=== PATIENT | female | born 1995 | race Caucasian/White ===

== ENCOUNTER 2020-11-13 12:57 | Inpatient (IN) ==
[2020-11-13] MEDS ORDERED: SODIUM CHLORIDE 0.9% 1000ML 1,000 ML IV ONE ×2 (13:12→17:22)
[2020-11-13] MEDS ORDERED: PANTOprazole 40 MG in SYRINGE 0 ML IV ONE (13:24)
--- NOTE | 2020-11-13 13:24 | Emergency Department Note ---
Impression & Plan Syncope, Acute hypotension, Acute GI bleeding, Abnormal abdominal CT scan ED Provider Note NAME: JOSE GUPTA AGE: 25 SEX: F : 1995 ARRIVES VIA: Walk-In INFORMANT: Patient, ED PROVIDER(S): Sean Garcia DO CHIEF COMPLAINT: Syncope HPI: The patient is a 25-year-old female who presented to the emergency department for an evaluation of having syncope. The patient describes dizziness upon standing. The patient states that she has been having the symptoms for the last few weeks. She initially started having shortness of breath and dizziness. She was not seen by primary care physician prior to coming to the emergency d epartment today. She did call advice line but was told to stay at home. She presents emergency department today after having syncope upon standing. She states she becomes very dizzy and lightheaded whenever she stands. The patient started to notice nausea and vomiting. She states that she has had some rectal bleeding but thought she might have hemorrhoids. She denies having any hematemesis. She denies having any fevers. The patient denies having any chest pain. She does complain of dyspnea on exertion. She denies have any lower extremity swelling or recent traveling. ROS: See above HPI for pertinent positives & negatives. A total of 10 systems reviewed and were otherwise negative. PAST MEDICAL HISTORY: See Below PAST SURGICAL HISTORY: See Below FAMILY HISTORY: See Below SOCIAL HISTORY: See Below HOME MEDICATIONS: See Below ALLERGIES: See Below VITALS: See Below PHYSICAL EXAMINATION: GENERAL: The patient is awake and alert. The patient is very anxious appearing. EYES: The conjunctivae are pale. The pupils are round and reactive. EARS, NOSE, MOUTH AND THROAT: The nose is without any evidence of any deformity. NECK: The neck is nontender and supple. RESPIRATORY: Normal respiratory effort is noted there is no evidence of wheezing rhonchi or rales CARDIOVASCULAR: Regular rate and rhythm noted there no murmurs rubs or gallops normal S1 normal S2. GASTROINTESTINAL: The abdomen is soft. Abdomen is nontender. Rectal exam revealed brown stool which was heme positive. MUSCULOSKELETAL/EXTREMITIES: There is no evidence of gross deformity full range of motion is noted in the hips and shoulders. SKIN: There is no obvious evidence of any rash. There are no petechiae, pallor or cyanosis noted. NEUROLOGIC: Patient is awake alert and oriented x3 strength is symmetric patellar reflexes are 2+ bilaterally MEDICAL DECISION MAKING: The patient is a 25-year-old female who presented to the emergency department because of dizziness and syncope. The patient's had ongoing symptoms for the last week or so. She states that she was not seen by her primary care physician. She does not have any significant past medical history. She only presented today because she passed out and was very concerned about this episode. She did not have a physical exam consistent with acute surgical abdomen. The patient was treated with IV fluids in the emergency department. Her hypotension significantly improved after IV hydration. I discussed the patient's laboratory and radiographic studies with her. She was found to have possible signs of appendicitis on CT the abdomen and pelvis although on physical exam I doubt this. I discussed her case with the on-call general surgeon. She was also found to have signs of heme positive stool. It is possible she has a GI bleed but I doubt this is causing her hypotension as her hemoglobin is stable. The patient was feeling much better on reevaluation but I am very concerned about the patient's overall condition. For this reason I discussed her case also with the on-call [facility] hospitalist. They have agreed to evaluate the patient in the emergency department for further management and disposition. Triage Nursing notes reviewed. Prior medical records reviewed Vital Signs: reviewed and remarkable for hypotension Differential diagnosis: Infection, dehydration, metabolic abnormality, hypo/hyperglycemia, electrolyte disturbance, anemia, hypoxia, cardiac sources, intracerebral event, toxicologic, neurologic, as well as other pathologies. ER treatment provided: See below Diagnostics interpreted by me: ECG: EKG was obtained in the emergency department. My interpretation is normal sinus rhythm at 99 bpm. There was no ectopy. There is no acute ST segment abnormalities noted. No previous tracing was available. Cardiac Monitoring: An order was placed for continuous cardiac monitoring. The monitor shows a rate of 105 bpm with sinus tachycardia rhythm. Laboratory studies: As stated above and show below. Imaging studies: See below Consultation(s): 1734: I discussed this case with Dr. Small who is on-call for general surgery. He will evaluate the patient in the emergency department 1740: I discussed this case with Dr Kennedy. He he is agreed to evaluate the patient in the emergency department for further inpatient management. Past Med/Surg History Social History Smoking Status: Never smoker Preferred Language: Arabic Feels Safe at Home: Yes Allergies Allergies Allergy/AdvReac Type Severity Reaction Status Date / Time No Known Allergies Allergy Verified 11/13/20 14:04 Home Meds Home Medications Medication Instructions Recorded Confirmed multivitamin [Multiple Vitamin] 1 tab PO DAILY 11/13/20 11/13/20 Results & Data (ED) Vital Signs Vital Signs - 24 hr 11/13/20 13:03 11/13/20 13:24 11/13/20 13:26 Temperature 36.8 C Temperature Source Temporal Artery Scan Pulse Rate 86 107 H Pulse Rate [Left Finger] Respiratory Rate 20 16 Respiratory Effort / Characteristics Non-Labored Non-Labored Respiratory Depth Normal Respiratory Pattern Regular Blood Pressure 71/58 L 105/70 Blood Pressure [Left Arm] Blood Pressure Mean 62 82 Blood Pressure Mean [Left Arm] Blood Pressure Position Sitting Pulse Oximetry 94 96 96 Oxygen Delivery Method Room Air Room Air Sepsis Recent Fever Within 48 Hours No Sepsis New/Unexplained Change in Mental Status No Sepsis Action Taken by Nursing No Action Required 11/13/20 13:44 11/13/20 14:58 11/13/20 15:03 Temperature Temperature Source Pulse Rate 110 H Pulse Rate [Left Finger] 108 H 98 H Respiratory Rate 15 20 18 Respiratory Effort / Characteristics Respiratory Depth Respiratory Pattern Blood Pressure 106/65 Blood Pressure [Left Arm] 89/58 L 105/63 Blood Pressure Mean 84 Blood Pressure Mean [Left Arm] 68 77 Blood Pressure Position Pulse Oximetry 98 100 100 Oxygen Delivery Method Room Air Room Air Sepsis Recent Fever Within 48 Hours Sepsis New/Unexplained Change in Mental Status Sepsis Action Taken by Nursing 11/13/20 15:04 11/13/20 16:32 11/13/20 17:35 Temperature Temperature Source Pulse Rate Pulse Rate [Left Finger] 108 H 104 H Respiratory Rate 20 20 Respiratory Effort / Characteristics Respiratory Depth Respiratory Pattern Blood Pressure Blood Pressure [Left Arm] 104/60 102/64 Blood Pressure Mean Blood Pressure Mean [Left Arm] 74 76 Blood Pressure Position Pulse Oximetry 100 100 95 Oxygen Delivery Method Room Air Room Air Sepsis Recent Fever Within 48 Hours Sepsis New/Unexplained Change in Mental Status Sepsis Action Taken by Jail Medications Current Medication List: was personally reviewed by me Laboratory Data Attestation: I reviewed the patient's lab results. Result diagrams: 11/13/20 13:01 11/13/20 13:01 Lab Results 11/13/20 11/13/20 11/13/20 Range/Units 13:01 13:01 13:01 WBC (4.8-10.8) K/uL RBC (4.2-5.4) M/uL Hgb (12.0-16.0) g/dL POC Hgb (12.0-16.0) g/dl Hct (37-47) % POC Hct (37-47) % MCV (80-100) fL MCH (25-34) pg MCHC (32-36) g/dL RDW Std Deviation (36.4-46.3) fL RDW Coeff of Titi (11.5-14.5) % Plt Count (130-400) K/uL MPV (7.4-10.4) fL Neutrophils % (Manual) % Lymphocytes % (Manual) % Reactive Lymphs % (Man) % Monocytes % (Manual) % Eosinophils % (Manual) % Basophils % (Manual) % Neutrophils # (Manual) (1.4-6.5) K/uL Total Absolute Neuts (1.4-6.5) K/uL Lymphocytes # (Manual) (1.2-3.4) K/uL Reactive Lymphs # K/uL Total Abs Lymphocytes (1.2-3.4) K/uL Monocytes # (Manual) (0.11-0.59) K/uL Eosinophils # (Manual) (0-0.5) K/uL Basophils # (Manual) (0-0.2) K/uL PT 11.2 (9.0-12.0) Seconds INR 1.1 (0.9-1.1) APTT 32.5 H (21.0-31.0) Seconds PTT Ratio 1.2 D-Dimer 1800 H* (0-500) ug/L FEU POC Sodium (135-144) mmol/L Sodium 132 L (136-145) mmol/L POC Potassium (3.3-5.0) mmol/L Potassium 3.8 (3.5-5.1) mmol/L POC Chloride (101-112) mmol/L Chloride 99 (98-107) mmol/L Carbon Dioxide 25 (21-32) mmol/L POC Total CO2 (24-31) mmol/L Anion Gap 8.0 (3-11) POC Anion Gap (16-25) mmol/L POC BUN (7-18) mg/dl BUN 21 H (7-18) mg/dl Creatinine 1.09 (0.6-1.2) mg/dl POC Creatinine (0.6-1.3) mg/dl Est Cr Clr Drug Dosing Not Reportable Est GFR ( Amer) 82.3 Est GFR (Non-Af Amer) 71.0 BUN/Creatinine Ratio 19.4 (10-20) Glucose 106 H (70-99) mg/dl POC Glucose (other) (70-99) mg/dl Lactate (0.4-2.0) mmol/L Calcium 10.6 H (8.5-10.1) mg/dl POC Ioniz Calcium Kirsten (1.12-1.32) mmol/l Magnesium 1.8 (1.8-2.4) mg/dl Total Bilirubin 0.8 (0.2-1) mg/dl AST 59 H (15-37) U/L ALT 42 (12-78) U/L Alkaline Phosphatase 54 (45-117) U/L Troponin I < 0.015 (0-0.045) ng/ml Total Protein 8.2 (6.4-8.2) gm/dl Albumin 4.0 (3.4-5.0) gm/dl Globulin 4.2 H (2.5-4.0) gm/dl Albumin/Globulin Ratio 0.9 (0.9-2) Procalcitonin 0.06 (0-0.5) ng/ml TSH (0.300-4.500) uIu/ml HCG, Qual Negative (Negative) Urine Color Urine Appearance (Clear) Urine pH (4.5-7.5) Ur Specific Opp (1.000-1.030) Urine Protein (Negative) Urine Glucose (UA) (Negative) Urine Ketones (Negative) Urine Blood (Negative) Urine Nitrite (Negative) Urine Bilirubin (Negative) Urine Urobilinogen (Negative) Ur Leukocyte Esterase (Negative) Anaplasma Smear Lyme Disease IgG Ab (Negative) Lyme Disease IgM Ab (Negative) Blood Type Antibody Screen 11/13/20 11/13/20 11/13/20 Range/Units 13:01 13:01 13:27 WBC 10.14 (4.8-10.8) K/uL RBC 5.11 (4.2-5.4) M/uL Hgb 14.8 (12.0-16.0) g/dL POC Hgb 15.3 (12.0-16.0) g/dl Hct 43.7 (37-47) % POC Hct 45 (37-47) % MCV 85.5 (80-100) fL MCH 29.0 (25-34) pg MCHC 33.9 (32-36) g/dL RDW Std Deviation 39.7 (36.4-46.3) fL RDW Coeff of Titi 12.6 (11.5-14.5) % Plt Count 294 (130-400) K/uL MPV 10.6 H (7.4-10.4) fL Neutrophils % (Manual) 29.6 % Lymphocytes % (Manual) 36.5 % Reactive Lymphs % (Man) 17.4 % Monocytes % (Manual) 5.2 % Eosinophils % (Manual) 9.6 % Basophils % (Manual) 1.7 % Neutrophils # (Manual) 3.00 (1.4-6.5) K/uL Total Absolute Neuts 3.00 (1.4-6.5) K/uL Lymphocytes # (Manual) 3.70 H (1.2-3.4) K/uL Reactive Lymphs # 1.76 K/uL Total Abs Lymphocytes 5.47 H (1.2-3.4) K/uL Monocytes # (Manual) 0.53 (0.11-0.59) K/uL Eosinophils # (Manual) 0.97 H (0-0.5) K/uL Basophils # (Manual) 0.17 (0-0.2) K/uL PT (9.0-12.0) Seconds INR (0.9-1.1) APTT (21.0-31.0) Seconds PTT Ratio D-Dimer (0-500) ug/L FEU POC Sodium 132 L (135-144) mmol/L Sodium (136-145) mmol/L POC Potassium 3.9 (3.3-5.0) mmol/L Potassium (3.5-5.1) mmol/L POC Chloride 97 L (101-112) mmol/L Chloride (98-107) mmol/L Carbon Dioxide (21-32) mmol/L POC Total CO2 24 (24-31) mmol/L Anion Gap (3-11) POC Anion Gap 16.0 (16-25) mmol/L POC BUN 22 H (7-18) mg/dl BUN (7-18) mg/dl Creatinine (0.6-1.2) mg/dl POC Creatinine 1.0 (0.6-1.3) mg/dl Est Cr Clr Drug Dosing Est GFR ( Amer) Est GFR (Non-Af Amer) BUN/Creatinine Ratio (10-20) Glucose (70-99) mg/dl POC Glucose (other) 107 H (70-99) mg/dl Lactate (0.4-2.0) mmol/L Calcium (8.5-10.1) mg/dl POC Ioniz Calcium Kirsten 1.39 H (1.12-1.32) mmol/l Magnesium (1.8-2.4) mg/dl Total Bilirubin (0.2-1) mg/dl AST (15-37) U/L ALT (12-78) U/L Alkaline Phosphatase (45-117) U/L Troponin I (0-0.045) ng/ml Total Protein (6.4-8.2) gm/dl Albumin (3.4-5.0) gm/dl Globulin (2.5-4.0) gm/dl Albumin/Globulin Ratio (0.9-2) Procalcitonin (0-0.5) ng/ml TSH 1.070 (0.300-4.500) uIu/ml HCG, Qual (Negative) Urine Color Urine Appearance (Clear) Urine pH (4.5-7.5) Ur Specific Opp (1.000-1.030) Urine Protein (Negative) Urine Glucose (UA) (Negative) Urine Ketones (Negative) Urine Blood (Negative) Urine Nitrite (Negative) Urine Bilirubin (Negative) Urine Urobilinogen (Negative) Ur Leukocyte Esterase (Negative) Anaplasma Smear Lyme Disease IgG Ab (Negative) Lyme Disease IgM Ab (Negative) Blood Type Antibody Screen 11/13/20 11/13/20 11/13/20 Range/Units 13:40 13:57 13:57 WBC (4.8-10.8) K/uL RBC (4.2-5.4) M/uL Hgb (12.0-16.0) g/dL POC Hgb (12.0-16.0) g/dl Hct (37-47) % POC Hct (37-47) % MCV (80-100) fL MCH (25-34) pg MCHC (32-36) g/dL RDW Std Deviation (36.4-46.3) fL RDW Coeff of Titi (11.5-14.5) % Plt Count (130-400) K/uL MPV (7.4-10.4) fL Neutrophils % (Manual) % Lymphocytes % (Manual) % Reactive Lymphs % (Man) % Monocytes % (Manual) % Eosinophils % (Manual) % Basophils % (Manual) % Neutrophils # (Manual) (1.4-6.5) K/uL Total Absolute Neuts (1.4-6.5) K/uL Lymphocytes # (Manual) (1.2-3.4) K/uL Reactive Lymphs # K/uL Total Abs Lymphocytes (1.2-3.4) K/uL Monocytes # (Manual) (0.11-0.59) K/uL Eosinophils # (Manual) (0-0.5) K/uL Basophils # (Manual) (0-0.2) K/uL PT (9.0-12.0) Seconds INR (0.9-1.1) APTT (21.0-31.0) Seconds PTT Ratio D-Dimer (0-500) ug/L FEU POC Sodium (135-144) mmol/L Sodium (136-145) mmol/L POC Potassium (3.3-5.0) mmol/L Potassium (3.5-5.1) mmol/L POC Chloride (101-112) mmol/L Chloride (98-107) mmol/L Carbon Dioxide (21-32) mmol/L POC Total CO2 (24-31) mmol/L Anion Gap (3-11) POC Anion Gap (16-25) mmol/L POC BUN (7-18) mg/dl BUN (7-18) mg/dl Creatinine (0.6-1.2) mg/dl POC Creatinine (0.6-1.3) mg/dl Est Cr Clr Drug Dosing Est GFR ( Amer) Est GFR (Non-Af Amer) BUN/Creatinine Ratio (10-20) Glucose (70-99) mg/dl POC Glucose (other) (70-99) mg/dl Lactate 2.0 (0.4-2.0) mmol/L Calcium (8.5-10.1) mg/dl POC Ioniz Calcium Kirsten (1.12-1.32) mmol/l Magnesium (1.8-2.4) mg/dl Total Bilirubin (0.2-1) mg/dl AST (15-37) U/L ALT (12-78) U/L Alkaline Phosphatase (45-117) U/L Troponin I (0-0.045) ng/ml Total Protein (6.4-8.2) gm/dl Albumin (3.4-5.0) gm/dl Globulin (2.5-4.0) gm/dl Albumin/Globulin Ratio (0.9-2) Procalcitonin (0-0.5) ng/ml TSH (0.300-4.500) uIu/ml HCG, Qual (Negative) Urine Color Urine Appearance (Clear) Urine pH (4.5-7.5) Ur Specific Opp (1.000-1.030) Urine Protein (Negative) Urine Glucose (UA) (Negative) Urine Ketones (Negative) Urine Blood (Negative) Urine Nitrite (Negative) Urine Bilirubin (Negative) Urine Urobilinogen (Negative) Ur Leukocyte Esterase (Negative) Anaplasma Smear See Comment Lyme Disease IgG Ab (Negative) Lyme Disease IgM Ab (Negative) Blood Type O Positive Antibody Screen NEGATIVE 11/13/20 11/13/20 Range/Units 13:57 16:25 WBC (4.8-10.8) K/uL RBC (4.2-5.4) M/uL Hgb (12.0-16.0) g/dL POC Hgb (12.0-16.0) g/dl Hct (37-47) % POC Hct (37-47) % MCV (80-100) fL MCH (25-34) pg MCHC (32-36) g/dL RDW Std Deviation (36.4-46.3) fL RDW Coeff of Titi (11.5-14.5) % Plt Count (130-400) K/uL MPV (7.4-10.4) fL Neutrophils % (Manual) % Lymphocytes % (Manual) % Reactive Lymphs % (Man) % Monocytes % (Manual) % Eosinophils % (Manual) % Basophils % (Manual) % Neutrophils # (Manual) (1.4-6.5) K/uL Total Absolute Neuts (1.4-6.5) K/uL Lymphocytes # (Manual) (1.2-3.4) K/uL Reactive Lymphs # K/uL Total Abs Lymphocytes (1.2-3.4) K/uL Monocytes # (Manual) (0.11-0.59) K/uL Eosinophils # (Manual) (0-0.5) K/uL Basophils # (Manual) (0-0.2) K/uL PT (9.0-12.0) Seconds INR (0.9-1.1) APTT (21.0-31.0) Seconds PTT Ratio D-Dimer (0-500) ug/L FEU POC Sodium (135-144) mmol/L Sodium (136-145) mmol/L POC Potassium (3.3-5.0) mmol/L Potassium (3.5-5.1) mmol/L POC Chloride (101-112) mmol/L Chloride (98-107) mmol/L Carbon Dioxide (21-32) mmol/L POC Total CO2 (24-31) mmol/L Anion Gap (3-11) POC Anion Gap (16-25) mmol/L POC BUN (7-18) mg/dl BUN (7-18) mg/dl Creatinine (0.6-1.2) mg/dl POC Creatinine (0.6-1.3) mg/dl Est Cr Clr Drug Dosing Est GFR ( Amer) Est GFR (Non-Af Amer) BUN/Creatinine Ratio (10-20) Glucose (70-99) mg/dl POC Glucose (other) (70-99) mg/dl Lactate (0.4-2.0) mmol/L Calcium (8.5-10.1) mg/dl POC Ioniz Calcium Kirsten (1.12-1.32) mmol/l Magnesium (1.8-2.4) mg/dl Total Bilirubin (0.2-1) mg/dl AST (15-37) U/L ALT (12-78) U/L Alkaline Phosphatase (45-117) U/L Troponin I (0-0.045) ng/ml Total Protein (6.4-8.2) gm/dl Albumin (3.4-5.0) gm/dl Globulin (2.5-4.0) gm/dl Albumin/Globulin Ratio (0.9-2) Procalcitonin (0-0.5) ng/ml TSH (0.300-4.500) uIu/ml HCG, Qual (Negative) Urine Color Yellow Urine Appearance Clear (Clear) Urine pH 5.0 (4.5-7.5) Ur Specific Opp 1.038 H (1.000-1.030) Urine Protein Negative (Negative) Urine Glucose (UA) Negative (Negative) Urine Ketones Trace H (Negative) Urine Blood Negative (Negative) Urine Nitrite Negative (Negative) Urine Bilirubin Negative (Negative) Urine Urobilinogen Negative (Negative) Ur Leukocyte Esterase Negative (Negative) Anaplasma Smear Lyme Disease IgG Ab Negative (Negative) Lyme Disease IgM Ab Negative (Negative) Blood Type Antibody Screen Administered Medications Discontinued Medications Sodium Chloride (Nss 1000ml) 1,000 mls @ 999 mls/hr IV .Q1H1M ONE Stop: 11/13/20 14:12 Last Infusion: 11/13/20 15:05 Dose: 0 mls/hr Documented by: [id number] Admin: 11/13/20 13:25 Dose: 999 mls/hr Documented by: [id number] Pantoprazole Sodium 40 mg/ (Syringe) 10 mls @ 5 mls/min IV NOW ONE Stop: 11/13/20 13:25 Last Admin: 11/13/20 13:52 Dose: 5 mls/min Documented by: [id number] Ioversol (Optiray 320 125ml) 120 ml IV ONCE ONE Stop: 11/13/20 16:15 Last Admin: 11/13/20 16:16 Dose: 120 ml Documented by: [id number] Imaging Data Radiologist's Impression: Patient: JOSE GUPTA Admit Date: 11/13/20 MR#: [id number] Address1: [address] [place] [address] Acct ID:[id number] Address2: Date: 1995 [facility] Zip: [place] [address] Age: 25 Location: ED Sex: F Room/Bed: Att Phy: Diagnosis: LIGHTHEADED,NAUSEA,SICK FOR FEW DAYS Malou Phy: PCP,NO Service Date: 11/13/20 Fam Phy: Interpreting Phy: Zan Huerta MD Admit Phy: Ordering Phy: Sean Garcia DO cc: ~ CT ANGIOGRAM OF THE CHEST CLINICAL HISTORY: Syncope, shortness of breath. Possible pulmonary embolism. SEPSIS COMPARISON STUDY: Chest x-ray dated 11/13/2020 TECHNIQUE: Following the IV administration of 120 mL of Optiray-320, CT angiogram of the thorax was performed from the thoracic inlet to the lung bases utilizing the pulmonary embolus protocol. Images are reviewed in the axial, sagittal, and coronal planes. IV contrast was administered without complication. MIP imaging was performed. A dose lowering technique was utilized adhering to the principles of ALARA. CT DOSE: 644.15 mGycm FINDINGS: No pathologically enlarged axillary mediastinal or hilar lymph nodes were visualized. There was no evidence of thoracic aortic dilatation. There were no pulmonary artery filling defects to indicate acute pulmonary embolism. No pleural effusions are visualized. There was no evidence of focal pulmonary consolidation. IMPRESSION: 1. No acute intrathoracic findings 2. No evidence of acute pulmonary embolism 3. No evidence of focal pulmonary consolidation 4. No evidence of pathologic adenopathy ACT 112: Negative or not required by law. Electronically signed by: Zan Huerta M.D. 11/13/2020 4:26 PM Dictated: 11/13/201623 Transcribed: 11/13/201623 Patient: JOSE GUPTA Admit Date: 11/13/20 MR#: [id number] Address1: [address] [place] [address] Acct ID:[id number] Address2: Date: 1995 [facility] Zip: [place] [address] Age: 25 Location: ED Sex: F Room/Bed: Att Phy: Diagnosis: LIGHTHEADED,NAUSEA,SICK FOR FEW DAYS Malou Phy: PCP,NO Service Date: 11/13/20 [facility] Phy: Interpreting Phy: Zan Huerta MD Admit Phy: Ordering Phy: Sean Garcia DO cc: ~ CT abd pelvis IV con only CLINICAL HISTORY: Syncope VOMITING COMPARISON STUDY: None. TECHNIQUE: The patient was scanned in a dynamic helical fashion during intravenous administration of 120 cc of Optiray 320 A dose lowering technique was utilized adhering to the principles of ALARA. CT DOSE: FINDINGS: Lower chest: The heart is normal in size and configuration, without pericardial effusion. The lung bases and pleural spaces are clear. Liver: The contrast-enhanced liver is normal in size, contour, and attenuation. There is no intrahepatic biliary ductal dilatation. The hepatic veins and portal veins are patent. Gallbladder: Unremarkable. Spleen: Normal in size and attenuation. Pancreas: Unremarkable. Adrenal glands: Unremarkable. Kidneys: There is symmetric renal cortical enhancement. The kidneys are normal in size without hydronephrosis. Bowel: There are no transition zones to indicate bowel obstruction. There is no evidence of acute diverticulitis. There is a long appendix. There is an appendicolith within the midportion of the appendix. The appendix distal to the appendicolith is borderline dilated measuring 7 mm. There is no periappendiceal stranding. Peritoneum: There is no intraperitoneal free air or abdominal ascites. Vasculature: The abdominal aorta is normal in course and caliber. Adenopathy: None. Pelvic viscera: There are prominent bilateral ovarian follicles measuring up to 43 mm on the right, and 26 mm on the left. Skeletal structures: No destructive osseous lesions are seen. IMPRESSION: 1. No evidence of bowel obstruction. No evidence of free air 2. No evidence of acute diverticulitis 3. 5 mm appendicolith in the middle of a long appendix. The appendix at this level and distal to this level is borderline thickened measuring 7 mm. There is however no periappendiceal stranding. This may therefore be chronic. Clinical correlation and follow-up is advocated. 4. Multiple prominent bilateral ovarian follicles measuring up to 43 mm in the right and 26 mm on the left. Ovarian hyperstimulation cannot be excluded. Correlation with any history of exogenous hormonal stimulation is recommended. ACT 112: Negative or not required by law. Electronically signed by: Zan Huerta M.D. 11/13/2020 4:36 PM Dictated: 11/13/201626 Transcribed: 11/13/201626 Patient: JOSE GUPTA Admit Date: 11/13/20 MR#: [id number] Address1: [address] [facility] Acct ID:[id number] Address2: Date: 1995 [facility] Zip: [place] [address] Age: 25 Location: ED Sex: F Room/Bed: Att Phy: Diagnosis: LIGHTHEADED,NAUSEA,SICK FOR FEW DAYS Malou Phy: PCP,NO Service Date: 11/13/20 [facility] Phy: Interpreting Phy: Zan Huerta MD Admit Phy: Ordering Phy: Sean Garcia, cc: ~ XR chest 1V portable CLINICAL HISTORY: SEPSIS COMPARISON STUDY: No previous studies for comparison. FINDINGS: The cardiac and mediastinal contours are normal. There is no evidence of focal pulmonary consolidation. There is no evidence of failure. No pleural effusions are visualized.[ IMPRESSION: No active disease in the chest. ACT 112: Negative or not required by law. Electronically signed by: Zan Huerta M.D. 11/13/2020 1:32 PM Dictated: 11/13/20 1331 Transcribed: 11/13/20 1331 Blood Pressure Blood Pressure Findings: Low blood pressure Discharge Plan Visit Data Chief Complaint: Illness Stated Complaint: LIGHTHEADED,NAUSEA,SICK FOR FEW DAYS ED Provider: Sean Garcia Discharge Problem: Syncope, Acute hypotension, Acute GI bleeding, Abnormal abdominal CT scan Patient Disposition: Being Evaluated by Hospitalist Condition: Good Forms Stand Alone Forms: [email or web address] Prescriptions Prescriptions: No Action multivitamin [Multiple Vitamin] Tablet 1 tab PO DAILY RF: 0 Referrals Referrals: PCP,NO [Primary Care Provider] - Discharge Problem: Syncope Qualifiers: Syncope type: unspecified Qualified Code(s): R55 - Syncope and collapse
--- NOTE | 2020-11-13 13:33 | XRay Report ---
XR chest 1V portable CLINICAL HISTORY: SEPSIS COMPARISON STUDY: No previous studies for comparison. FINDINGS: The cardiac and mediastinal contours are normal. There is no evidence of focal pulmonary co nsolidation. There is no evidence of failure. No pleural effusions are visualized.[ IMPRESSION: No active disease in the chest. ACT 112: Negative or not required by law. Electronically signed by: Zan Huerta M.D. 11/13/2020 1:32 PM
[2020-11-13 13:39] LABS: iSTAT Hemoglobin 15.3 g/dl (12.0-16.0); iSTAT Ionized Calcium 1.39 mmol/l (1.12-1.32); iSTAT Potassium 3.9 mmol/L (3.3-5.0)
[2020-11-13 13:41] LABS: Hematocrit (blood only) 43.7 % (37-47); Hemoglobin 14.8 g/dL (12.0-16.0); Mean Corpuscular Hgb Conc 33.9 g/dL (32-36); Mean Corpuscular Volume 85.5 fL (80-100); Mean Platelet Volume 10.6 fL (7.4-10.4); Platelet Count 294 K/uL (130-400); RDW Coefficient of Variation 12.6 % (11.5-14.5); RDW Standard Deviation 39.7 fL (36.4-46.3); Red Blood Count 5.11 M/uL (4.2-5.4); White Blood Count 10.14 K/uL (4.8-10.8)
[2020-11-13 13:55] LABS: INR 1.1 (0.9-1.1); Partial Thromboplastin Ratio 1.2; Partial Thromboplastin Time 32.5 Seconds (21.0-31.0); Prothrombin Time 11.2 Seconds (9.0-12.0)
[2020-11-13 14:00] LABS: Alanine Aminotransferase 42 U/L (12-78); Aspartate Aminotransferase 59 U/L (15-37); BUN Creatinine Ratio 19.4 (10-20); Blood Urea Nitrogen 21 mg/dl (7-18); Calcium 10.6 mg/dl (8.5-10.1); Carbon Dioxide 25 mmol/L (21-32); Chloride 99 mmol/L (98-107); Est GFR (African American) 82.3; Glucose 106 mg/dl (70-99); Magnesium 1.8 mg/dl (1.8-2.4); Potassium 3.8 mmol/L (3.5-5.1); Sodium 132 mmol/L (136-145)
[2020-11-13 14:04] LABS: ALC (manual) 5.47 K/uL (1.2-3.4); Albumin Globulin Ratio 0.9 (0.9-2); Alkaline Phosphatase 54 U/L (45-117); Basophils # (manual) 0.17 K/uL (0-0.2); Basophils % (manual) 1.7 %; Bilirubin,Total 0.8 mg/dl (0.2-1); Eosinophils # (manual) 0.97 K/uL (0-0.5); Eosinophils % (manual) 9.6 %; Globulin 4.2 gm/dl (2.5-4.0); Lymphocytes % (manual) 36.5 %; Monocytes # (manual) 0.53 K/uL (0.11-0.59); Monocytes % (manual) 5.2 %; Neutrophils % (manual) 29.6 %; Reactive Lymphocytes # (manual) 1.76 K/uL; Reactive Lymphocytes % (manual) 17.4 %; Total Protein 8.2 gm/dl (6.4-8.2); Troponin I < 0.015 ng/ml (0-0.045)
[2020-11-13 14:20] LABS: Procalcitonin 0.06 ng/ml (0-0.5)
[2020-11-13 14:38] LABS: D Dimer 1800 ug/L FEU (0-500)
[2020-11-13 14:41] LABS: Pregnancy Test, Serum Negative (Negative)
[2020-11-13 15:20] LABS: Lyme Ab IgG w/WB Rflx Negative (Negative)
[2020-11-13 15:21] LABS: Lyme Ab IgM w/WB Rflx Negative (Negative)
[2020-11-13] MEDS ORDERED: OPTIRAY 320 125ml IV ONE (16:14)
--- NOTE | 2020-11-13 16:28 | CT Scan Report ---
CT ANGIOGRAM OF THE CHEST CLINICAL HISTORY: Syncope, shortness of breath. Possible pulmonary embolism. SEPSIS COMPARISON STUDY: Chest x-ray dated 11/13/2020 TECHNIQUE: Following the IV administration of 120 mL of Optiray-320, CT angiogram of the thorax was p erformed from the thoracic inlet to the lung bases utilizing the pulmonary embolus protocol. Images a re reviewed in the axial, sagittal, and coronal planes. IV contrast was administered without complica tion. MIP imaging was performed. A dose lowering technique was utilized adhering to the principles o f ALARA. CT DOSE: 644.15 mGycm FINDINGS: No pathologically enlarged axillary mediastinal or hilar lymph nodes were visualized. There was no evidence of thoracic aortic dilatation. There were no pulmonary artery filling defects to indicate acute pulmonary embolism. No pleural effusions are visualized. There was no evidence of focal pulmonary consolidation. IMPRESSION: 1. No acute intrathoracic findings 2. No evidence of acute pulmonary embolism 3. No evidence of focal pulmonary consolidation 4. No evidence of pathologic adenopathy ACT 112: Negative or not required by law. Electronically signed by: Zan Huerta M.D. 11/13/2020 4:26 PM
[2020-11-13 16:37] LABS: Appearance Urine Clear (Clear); Bilirubin Urine Negative (Negative); Blood Urine Negative (Negative); Color Urine Yellow; Glucose Urine UA Negative (Negative); Ketones Urine Trace (Negative); Leukocyte Esterase Urine Negative (Negative); Nitrite Urine Negative (Negative); Protein Urine Negative (Negative); Specific Gravity Urine 1.038 (1.000-1.030); Urobilinogen Urine Negative (Negative)
--- NOTE | 2020-11-13 16:37 | CT Scan Report ---
CT abd pelvis IV con only CLINICAL HISTORY: Syncope VOMITING COMPARISON STUDY: None. TECHNIQUE: The patient was scanned in a dynamic helical fashion during intravenous administration of 120 cc of Optiray 320 A dose lowering technique was utilized adhering to the principles of ALARA. CT DOSE: FINDINGS: Lower chest: The heart is normal in size and configuration, without pericardial effusion. The lung ba ses and pleural spaces are clear. Liver: The contrast-enhanced liver is normal in size, contour, and attenuation. There is no intrahepa tic biliary ductal dilatation. The hepatic veins and portal veins are patent. Gallbladder: Unremarkable. Spleen: Normal in size and attenuation. Pancreas: Unremarkable. Adrenal glands: Unremarkable. Kidneys: There is symmetric renal cortical enhancement. The kidneys are normal in size without hydron ephrosis. Bowel: There are no transition zones to indicate bowel obstruction. There is no evidence of acute div erticulitis. There is a long appendix. There is an appendicolith within the midportion of the appendi x. The appendix distal to the appendicolith is borderline dilated measuring 7 mm. There is no periapp endiceal stranding. Peritoneum: There is no intraperitoneal free air or abdominal ascites. Vasculature: The abdominal aorta is normal in course and caliber. Adenopathy: None. Pelvic viscera: There are prominent bilateral ovarian follicles measuring up to 43 mm on the right, a nd 26 mm on the left. Skeletal structures: No destructive osseous lesions are seen. IMPRESSION: 1. No evidence of bowel obstruction. No evidence of free air 2. No evidence of acute diverticulitis 3. 5 mm appendicolith in the middle of a long appendix. The appendix at this level and distal to this level is borderline thickened measuring 7 mm. There is however no periappendiceal stranding. This ma y therefore be chronic. Clinical correlation and follow-up is advocated. 4. Multiple prominent bilateral ovarian follicles measuring up to 43 mm in the right and 26 mm on the left. Ovarian hyperstimulation cannot be excluded. Correlation with any history of exogenous hormona l stimulation is recommended. ACT 112: Negative or not required by law. Electronically signed by: Zan Huerta M.D. 11/13/2020 4:36 PM
--- NOTE | 2020-11-13 16:41 | Electrocardiogram Report ---
Test Reason : Blood Pressure : / mmHG Vent. Rate : 099 BPM Atrial Rate : 099 BPM P-R Int : 174 ms QRS Dur : 086 ms QT Int : 348 ms P-R-T Axes : 066 090 052 degrees QTc Int : 446 ms Normal sinus rhythm Rightward axis Low voltage QRS Borderline ECG No previous ECGs available Confirmed by Tito Ybarra ([id number]) on 11/13/2020 4:41:30 PM Referred By: Confirmed By:Tito Ybarra
--- NOTE | 2020-11-13 18:18 | History & Physical Report ---
Date of Service November 13, 2020 Assessment & Plan (1) Syncope: Syncope with persistent hypotension. Patient will be hydrated lactated Ringer's vigorously. Because of her hypotension is unclear at this time. Given her preceding illness in September perhaps could the patient have a viral cardiomyopathy, an echocardiogram is pending. Minor elevation of her calcium repeat calcium in the morning and check a parathyroid hormone. Infectious etiologies seem to be unremarkable in the emergency department Follicular cysts as noted on CT scan bilaterally recommending outpatient and work-up Patient is a rockclimbing denies any trauma related to this event however patient still had a CT scan of her brain we will add this initial inpatient work-up Patient will be monitored overnight for arrhythmia, patient will have a morning cortisol level. Patient has a normal thyroid simulating hormone level on presentation History of Present Illness Primary Care Provider: NO PCP 25-year-old previously healthy female presents to the ER after passing out while going to the bathroom. Patient was urinating when this happened. Patient states that she has been feeling ill for about 6 weeks at home. She states that in September she had upper respiratory infection such that she thought she might have had Covid. Patient was tested for Covid and was negative. Since that time she has been weak and dizzy presyncopal in her description when she stands up. She has difficulty walking about because she has these bouts of almost blacking out which she sort of Valsalvas to get through. She denies any vertiginous symptoms. She also has had persistent vomiting especially in the morning. Vomits foodstuffs from the night before sometimes. She states that with both the dizziness which prevent her from making meals and the vomiting she is had challenges keeping in food and liquids. She is also had some bright red blood per rectum intermittently but she thinks it might be hemorrhoids. She denies any other recent infectious symptoms. 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 He denies any increased stressors with regards to her relationship with her . She denies any dveq-enk-sbosobk medications. She is on had her period since August but she has had a very variable. Over her lifetime. She currently has a negative Covid and test in the ER and despite having a D-dimer of 1800 had a negative CTA for PE and negative CT abdomen and pelvis with exception of 2 follicular cysts. I did curbside gynecology and they feel they do not need any immediate attention nor should they be related to her presyncopal and syncopal symptoms but that she would benefit from a [employer]IAN follow-up in the future. The patient is currently switching to [facility] for her primary care. The only other abnormality in the ER that besides the D-dimer is a mildly elevated calcium parathyroid hormone is ordered for the morning Allergies Allergy/AdvReac Type Severity Reaction Status Date / Time No Known Allergies Allergy Verified 11/13/20 14:04 Home Medications Medication Instructions Recorded Confirmed Type multivitamin [Multiple Vitamin] 1 tab PO DAILY 11/13/20 11/13/20 History Past Med/Surg History Social History Smoking Status: Never smoker Preferred Language: Bermudian Feels Safe at Home: Yes Review of Systems Review of Systems: Mild to moderate distress and fatigue no headache, blurry or double vision no speech or swallowing issues no chest pain, pressure or palpitations Patient describes shortness of breath with dyspnea early on in the illness which is since resolved, continues without cough or wheezes no abdominal pain, has had persistent almost daily nausea or vomiting, no diarrhea or constipation but has had hematochezia no dysuria, hematuria or frequency Irregular menses with no menses since August 2020 no focal joint pain or swelling no back pain, CVA tenderness or radicular pain no bruising, bleeding or rashes no focal signs of weakness or numbness or altered sensation no complaints of anxiety or depression. Specifically denying effects of stress and depression. Physical Exam Physical Exam: The patient appeared well nourished and normally developed. Patient is very lean Vital signs as documented. Head exam is normocephalic atraumatic no scleral icterus conjunctivae are not pale Neck is without JVD, thyromegaly, or carotid bruits. No lymphadenopathy Lungs are clear to auscultation, no focal loss of breath sounds Cardiac exam, Rhythm is regular.. No murmurs, rubs or gallops. Abdominal exam reveals normal bowel sounds, soft non tender, no masses specifically no right lower quadrant tenderness rebound or guarding. Extremities are nonedematous and both pedal pulses are present Neurologic exam is alert and oriented, no focal loss of strength or sensation Skin is without bruises or rashes Results & Data Results & Data ([facility]) Vital Signs (Past 12 Hours) Vital Signs Temp Pulse Pulse Resp BP BP Pulse Ox 11/13/20 17:35 104 H 20 102/64 95 11/13/20 16:32 108 H 20 104/60 100 11/13/20 15:04 100 11/13/20 15:03 98 H 18 105/63 100 11/13/20 14:58 108 H 20 89/58 L 100 11/13/20 13:44 110 H 15 106/65 98 11/13/20 13:26 96 11/13/20 13:24 107 H 16 105/70 96 11/13/20 13:03 98.2 F 86 20 71/58 L 94 Code Status & VTE Plan VTE Prophylaxis Plan VTE Prophylaxis will be ordered: Yes PG Care Time/CCT Total # of Minutes Spent Total Time Spent with Patient: Total time spent is greater than 50% in coordination of care (as documented) at patient's floor/unit and/or counseling patient: Coding Level of Care Code 91813 Initial Inpt Care Lvl 2 Diagnoses Syncope R55 Syncope type: unspecified (1) Syncope Syncope type: unspecified Qualified Code(s): R55 - Syncope and collapse
--- NOTE | 2020-11-13 18:26 | Surgery Consultation ---
Date of Consultation November 13, 2020 Assessment & Plan (1) Syncope: pt is a 25 year-old female who presents to ER with 4 weeks history dizziness, IMP: syncope, acute hypotension, hypercalcemia Plan, no surgery indication now, agree with hospitalist who will admit pt to hospital, for further diagnosis and treatment, please check PTH base on high ca++. repeat labs in a morning, will F/U. Thanks, Present on Admission?: Yes (2) Acute hypotension: (3) Abnormal abdominal CT scan: History of Present Illness History of Present Illness CHIEF COMPLAINT: Syncope HPI: The patient is a 25-year-old female who presented to the emergency department for an evaluation of having syncope. The patient describes dizziness upon standing. The patient states that she has been having the symptoms for the last few weeks. She initially started having shortness of breath and dizziness. She was not seen by primary care physician prior to coming to the emergency department today. She did call advice line but was told to stay at home. She presents emergency department today after having syncope upon standing. She states she becomes very dizzy and lightheaded whenever she stands. The patient started to notice nausea and vomiting. She states that she has had some rectal bleeding but thought she might have hemorrhoids. She denies having any hematemesis. She denies having any fevers. The patient denies having any chest pain. She does complain of dyspnea on exertion. She denies have any lower extremity swelling or recent traveling. ROS: See above HPI for pertinent positives & negatives. A total of 10 systems reviewed and were otherwise negative. I ( Adelaide Small MD ) got a call for consult abnormal CT scan finding-7 mm appendix, I reviewed pt's H/P, labs, CT scan with pt, now pt feels better after IV fluid, pt denies abdominal pain, some time vomiting in morning, pt denies fever. no diarrhea, or constipation. PAST MEDICAL HISTORY: See Below PAST SURGICAL HISTORY: See Below FAMILY HISTORY: See Below SOCIAL HISTORY: See Below HOME MEDICATIONS: See Below ALLERGIES: See Below Allergies Allergy/AdvReac Type Severity Reaction Status Date / Time No Known Allergies Allergy Verified 11/13/20 14:04 Home Medications Medication Instructions Recorded Confirmed Type multivitamin [Multiple Vitamin] 1 tab PO DAILY 11/13/20 11/13/20 History Patient History Social History Smoking Status: Never smoker Preferred Language: Colombian Feels Safe at Home: Yes Review of Systems Review of Systems: All systems reviewed & are unremarkable except as noted in HPI & below Constitutional: as per Subjective / HPI Eyes: as per Subjective / HPI Ear, Nose, Mouth, Throat: as per Subjective / HPI Respiratory: as per Subjective / HPI Cardiovascular: as per Subjective / HPI Gastrointestinal: as per Subjective / HPI Genitourinary: as per Subjective / HPI Musculoskeletal: as per Subjective / HPI Integumentary: as per Subjective / HPI Neurologic: as per Subjective / HPI Psychiatric: as per Subjective / HPI Endocrine: as per Subjective / HPI Hematologic / Lymphatic: as per Subjective / HPI Allergy / Immunological: as per Subjective / HPI Physical Exam Constitutional: WD/WN, vitals as above well developed and well nourished Eyes: PERRL, conjunctivae normal, anicteric sclerae ENMT: external ear and nose normal, oropharynx normal Neck: trachea midline, no thyromegaly Respiratory: normal respiratory effort, lungs clear to auscultation normal respiratory effort Cardiovascular: RRR, no murmur, no edema Rate/Rhythm: regular rate and regular rhythm Heart Sounds: normal S1 and normal S2 Gastrointestinal (Abdomen): normal bowel sounds, soft, nontender, no hepatosplenomegaly Percussion/Palpation: abdomen soft NT, ND, BS + Musculoskeletal: no cyanosis or clubbing, extremities motor strength 5/5 Skin: no rashes, warm and dry Neurologic: awake Psychiatric: Orientation: alert and oriented x 3 Results & Data ([facility]) Vital Signs (Past 12 Hours) Vital Signs Temp Pulse Pulse Resp BP BP Pulse Ox 11/13/20 17:35 104 H 20 102/64 95 11/13/20 16:32 108 H 20 104/60 100 11/13/20 15:04 100 11/13/20 15:03 98 H 18 105/63 100 11/13/20 14:58 108 H 20 89/58 L 100 11/13/20 13:44 110 H 15 106/65 98 11/13/20 13:26 96 11/13/20 13:24 107 H 16 105/70 96 11/13/20 13:03 36.8 C 86 20 71/58 L 94 Laboratory Results Abnormal lab results 11/13/20 11/13/20 11/13/20 Range/Units 13:01 13:01 13:01 MPV 10.6 H (7.4-10.4) fL Lymphocytes # (Manual) 3.70 H (1.2-3.4) K/uL Total Abs Lymphocytes 5.47 H (1.2-3.4) K/uL Eosinophils # (Manual) 0.97 H (0-0.5) K/uL APTT 32.5 H (21.0-31.0) Seconds D-Dimer 1800 H* (0-500) ug/L FEU POC Sodium (135-144) mmol/L Sodium 132 L (136-145) mmol/L POC Chloride (101-112) mmol/L POC BUN (7-18) mg/dl BUN 21 H (7-18) mg/dl Glucose 106 H (70-99) mg/dl POC Glucose (other) (70-99) mg/dl Calcium 10.6 H (8.5-10.1) mg/dl POC Ioniz Calcium Kirsten (1.12-1.32) mmol/l AST 59 H (15-37) U/L Globulin 4.2 H (2.5-4.0) gm/dl Ur Specific [place] (1.000-1.030) Urine Ketones (Negative) 11/13/20 11/13/20 Range/Units 13:27 16:25 MPV (7.4-10.4) fL Lymphocytes # (Manual) (1.2-3.4) K/uL Total Abs Lymphocytes (1.2-3.4) K/uL Eosinophils # (Manual) (0-0.5) K/uL APTT (21.0-31.0) Seconds D-Dimer (0-500) ug/L FEU POC Sodium 132 L (135-144) mmol/L Sodium (136-145) mmol/L POC Chloride 97 L (101-112) mmol/L POC BUN 22 H (7-18) mg/dl BUN (7-18) mg/dl Glucose (70-99) mg/dl POC Glucose (other) 107 H (70-99) mg/dl Calcium (8.5-10.1) mg/dl POC Ioniz Calcium Kirsten 1.39 H (1.12-1.32) mmol/l AST (15-37) U/L Globulin (2.5-4.0) gm/dl Ur Specific [place] 1.038 H (1.000-1.030) Urine Ketones Trace H (Negative) Diagnostic Findings CT abd pelvis IV con only CLINICAL HISTORY: Syncope VOMITING COMPARISON STUDY: None. TECHNIQUE: The patient was scanned in a dynamic helical fashion during intravenous administration of 120 cc of Optiray 320 A dose lowering technique was utilized adhering to the principles of ALARA. CT DOSE: FINDINGS: Lower chest: The heart is normal in size and configuration, without pericardial effusion. The lung bases and pleural spaces are clear. Liver: The contrast-enhanced liver is normal in size, contour, and attenuation. There is no intrahepatic biliary ductal dilatation. The hepatic veins and portal veins are patent. Gallbladder: Unremarkable. Spleen: Normal in size and attenuation. Pancreas: Unremarkable. Adrenal glands: Unremarkable. Kidneys: There is symmetric renal cortical enhancement. The kidneys are normal in size without hydronephrosis. Bowel: There are no transition zones to indicate bowel obstruction. There is no evidence of acute diverticulitis. There is a long appendix. There is an appendicolith within the midportion of the appendix. The appendix distal to the appendicolith is borderline dilated measuring 7 mm. There is no periappendiceal stranding. Peritoneum: There is no intraperitoneal free air or abdominal ascites. Vasculature: The abdominal aorta is normal in course and caliber. Adenopathy: None. Pelvic viscera: There are prominent bilateral ovarian follicles measuring up to 43 mm on the right, and 26 mm on the left. Skeletal structures: No destructive osseous lesions are seen. IMPRESSION: 1. No evidence of bowel obstruction. No evidence of free air 2. No evidence of acute diverticulitis 3. 5 mm appendicolith in the middle of a long appendix. The appendix at this level and distal to this level is borderline thickened measuring 7 mm. There is however no periappendiceal stranding. This may therefore be chronic. Clinical correlation and follow-up is advocated. 4. Multiple prominent bilateral ovarian follicles measuring up to 43 mm in the right and 26 mm on the left. Ovarian hyperstimulation cannot be excluded. Correlation with any history of exogenous hormonal stimulation is recommended. (1) Syncope Syncope type: unspecified Qualified Code(s): R55 - Syncope and collapse
[2020-11-13] MEDS ORDERED: ACETAMINOPHEN 325 MG TAB PO PRN (19:22)
[2020-11-13] MEDS ORDERED: ALUMINUM/MAGNESIUM SUSP 30 ML UDC PO PRN (19:22)
[2020-11-13] MEDS ORDERED: ONDANSETRON INJ 2 MG/ML 2 ML VIAL IV PRN (19:22)
--- NOTE | 2020-11-13 19:56 | CT Scan Report ---
CT SCAN OF THE BRAIN WITHOUT IV CONTRAST CLINICAL HISTORY: Syncope. COMPARISON STUDY: No priors. TECHNIQUE: Unenhanced axial CT scan of the brain is performed from the vertex to the skull base. A d ose lowering technique was utilized adhering to the principles of ALARA. There is residual IV contras t from today's earlier CT scans. CT DOSE: 537.48 mGy.cm FINDINGS: Brain parenchyma: The brain parenchyma is normal in appearance. There is no hemorrhage, mass effect, or evidence of acute territorial ischemia by CT criteria. Houser-white matter differentiation is preser sarah. No extra-axial fluid collection is seen. Ventricles, sulci, cisterns: Normal in configuration. Intracranial vasculature: The visualized intracranial vasculature at the skull base is normal in appe arance. Calvarium: Unremarkable. Sinuses and mastoids: The visualized paranasal sinuses are clear. The mastoid air cells are well pneu matized. Orbits: The bony orbits are grossly intact. IMPRESSION: No acute intracranial abnormality. ACT 112: Negative or not required by law. Electronically signed by: Phong Bruno M.D. 11/13/2020 7:55 PM
[2020-11-13] MEDS: LACTATED RINGER'S 1,000 ML IV SCH (20:09)
[2020-11-13 21:09] LABS: Amphetamines+Metham, Urine Neg (Neg); Barbiturates, Urine Neg (Neg); Benzodiazepine, Urine Neg (Neg); Cocaine, Urine Neg (Neg); MDMA (Ecstacy), Urine Neg (Neg); Methadone, Urine Neg (Neg); Opiate, Urine Neg (Neg); Phencyclidine, Urine Neg (Neg)
[2020-11-14] MEDS: LACTATED RINGER'S 1,000 ML IV SCH ×2 (04:09→11:23)
[2020-11-14] MEDS: MULTIVITAMIN TAB PO SCH (07:48)
[2020-11-14 08:36] LABS: BUN Creatinine Ratio 20.7 (10-20); Calcium 9.9 mg/dl (8.5-10.1); Creatinine Clr Calc Pharmacy 105.2 ml/min; Est GFR (African American) 112.7; Est GFR (Non-African American) 97.3; Potassium 4.7 mmol/L (3.5-5.1)
--- NOTE | 2020-11-14 08:43 | Surgery Progress Note ---
Date of Service doing better, no abdominal pain, tolerated diet, no fever. November 14, 2020 Assessment & Plan (1) Syncope: pt is a 25 year-old female who presents to ER with 4 weeks history dizziness, IMP: syncope, acute hypotension, hypercalcemia Plan, no surgery indication now, agree with hospitalist who will admit pt to hospital, for further diagnosis and treatment, please check PTH base on high ca++. repeat labs in a morning, will F/U. Thanks, 11/14/2020 8:41AM doing better, no abdominal pain, no surgery issue now, sign off today, please call with questions, thanks, (2) Acute hypotension: (3) Abnormal abdominal CT scan: Admission and Anticipated Discharge Date Admission Date: November 13, 2020 Review of Systems Constitutional: as per Subjective / HPI Eyes: as per Subjective / HPI Ear, Nose, Mouth, Throat: as per Subjective / HPI Respiratory: as per Subjective / HPI Cardiovascular: as per Subjective / HPI Gastrointestinal: as per Subjective / HPI Genitourinary: as per Subjective / HPI Musculoskeletal: as per Subjective / HPI Integumentary: as per Subjective / HPI Neurologic: as per Subjective / HPI Psychiatric: as per Subjective / HPI Endocrine: as per Subjective / HPI Hematologic / Lymphatic: as per Subjective / HPI Allergy / Immunological: as per Subjective / HPI Physical Exam Constitutional: WD/WN, vitals as above well developed and well nourished Eyes: PERRL, conjunctivae normal, anicteric sclerae ENMT: external ear and nose normal, oropharynx normal Neck: trachea midline, no thyromegaly Respiratory: normal respiratory effort, lungs clear to auscultation normal respiratory effort Cardiovascular: RRR, no murmur, no edema Rate/Rhythm: regular rate and regular rhythm Heart Sounds: normal S1 and normal S2 Gastrointestinal (Abdomen): normal bowel sounds, soft, nontender, no hepatosplenomegaly Percussion/Palpation: abdomen soft Musculoskeletal: no cyanosis or clubbing, extremities motor strength 5/5 Skin: no rashes, warm and dry Neurologic: awake Psychiatric: Orientation: alert and oriented x 3 Results & Data ([facility]) Vital Signs (Past 12 Hours) Vital Signs Temp Pulse Pulse Resp BP Pulse Ox 11/14/20 08:00 36.6 C 99 H 16 94/53 L 98 11/14/20 07:23 80 11/14/20 03:08 36.6 C 116 H 18 103/68 96 11/13/20 23:49 96 H 11/13/20 22:00 37.0 C 99 H 20 102/61 99 PG Care Time/CCT Total # of Minutes Spent Total Time Spent with Patient: Total time spent is greater than 50% in coordination of care (as documented) at patient's floor/unit and/or counseling patient: Coding Level of Care Code 90789 Subseq Hosp Care Lvl 2 Diagnoses Syncope R55 Syncope type: unspecified Acute hypotension I95.[address] scan R93.5 (1) Syncope Syncope type: unspecified Qualified Code(s): R55 - Syncope and collapse
[2020-11-14 09:27] LABS: Albumin Globulin Ratio 0.9 (0.9-2); Albumin Level 3.3 gm/dl (3.4-5.0); Bilirubin,Total 0.6 mg/dl (0.2-1); Globulin 3.6 gm/dl (2.5-4.0); Total Protein 6.9 gm/dl (6.4-8.2)
[2020-11-14] MEDS ORDERED: COSYNTROPIN 250 MCG in SYRINGE 4 ML IV ONE (11:58)
--- NOTE | 2020-11-14 13:27 | XCELERA ---
[id number]
--- NOTE | 2020-11-14 13:38 | Hospitalist Progress Note ---
Date of Service November 14, 2020 Assessment & Plan (1) Adrenal insufficiency: Cortisol < 0.5 mcg/dL Cosyntropin simulation test ordered in addition to random ACTH. Can start on hydrocortisone after these are performed. Follow up with endocrinology as outpatient. (2) Hypoparathyroidism: Unclear diagnosis as calcium level normal. Raises possibility of polyglandular autoimmune syndrome. Follow up with endocrinology as outpatient. (3) Syncope: Secondary to orthostasis suspected to be due to adrenal insufficiency as above. (4) Acute hypotension: Adrenal insufficiency in addition to dehydration on admission. Currently euvolemic. Stop IV fluids (5) Abnormal abdominal CT scan: Follow up with [facility] outpatient due to prominent ovarian follicles. Admission and Anticipated Discharge Date Admission Date: November 13, 2020 Subjective Patient reports improvement in her lightheadedness on standing but still having significant orthostasis. Reports history of high salt diet and high intake of fluids as this helps. No personal or family history of autoimmune conditions. No chest pain or shortness of breath. Review of Systems Review of Systems: All systems reviewed & are unremarkable except as noted in HPI & below Physical Exam Constitutional: well developed and well nourished; no acute distress Respiratory: normal respiratory effort, lungs clear to auscultation Cardiovascular: RRR, no murmur, no edema Gastrointestinal (Abdomen): normal bowel sounds, soft, nontender, no hepatosplenomegaly Musculoskeletal: no cyanosis or clubbing, extremities motor strength 5/5 Skin: no rashes, warm and dry Neurologic: moves all extremities and awake; no focal motor deficits and not confused Psychiatric: A+Ox3, euthymic affect Results & Data Results & Data ([facility]) Vital Signs (Past 12 Hours) Vital Signs Temp Pulse Pulse Resp BP Pulse Ox 11/14/20 12:00 36.8 C 87 18 99/64 L 99 11/14/20 08:00 36.6 C 99 H 16 94/53 L 98 11/14/20 07:23 80 11/14/20 03:08 36.6 C 116 H 18 103/68 96 PG Care Time/CCT Total # of Minutes Spent Total Time Spent with Patient: Total time spent is greater than 50% in coordination of care (as documented) at patient's floor/unit and/or counseling patient: Coding Level of Care Code 22966 Subseq Obs Care Lvl 2 Diagnoses Adrenal insufficiency E27.40 Hypoparathyroidism E20.9 Syncope R55 Syncope type: unspecified Acute hypotension I95.[address] scan R93.5 (1) Syncope Syncope type: unspecified Qualified Code(s): R55 - Syncope and collapse
[2020-11-15] MEDS ORDERED: COSYNTROPIN 250 MCG in SYRINGE 4 ML IV ONE (08:00)
[2020-11-15] MEDS: MULTIVITAMIN TAB PO SCH (08:46)
[2020-11-15 08:54] LABS: Hematocrit (blood only) 36.3 % (37-47); Hemoglobin 12.2 g/dL (12.0-16.0); Mean Corpuscular Hemoglobin 28.7 pg (25-34); Mean Corpuscular Hgb Conc 33.6 g/dL (32-36); Mean Corpuscular Volume 85.4 fL (80-100); Mean Platelet Volume 10.5 fL (7.4-10.4); Platelet Count 248 K/uL (130-400); RDW Coefficient of Variation 12.8 % (11.5-14.5); RDW Standard Deviation 39.8 fL (36.4-46.3); Red Blood Count 4.25 M/uL (4.2-5.4)
[2020-11-15 09:13] LABS: BUN Creatinine Ratio 20.6 (10-20); Calcium 9.8 mg/dl (8.5-10.1); Est GFR (African American) 98.4; Est GFR (Non-African American) 84.9; Potassium 4.2 mmol/L (3.5-5.1)
[2020-11-15] MEDS ORDERED: SODIUM CHLORIDE 0.9% 1000ML 500 ML IV ONE (11:03)
[2020-11-15] MEDS ORDERED: HYDROCORTISONE SOD 100 MG in SYRINGE 0 ML IV STA (11:04)
--- NOTE | 2020-11-15 14:42 | Hospitalist Progress Note ---
Date of Service November 15, 2020 Assessment & Plan (1) Adrenal insufficiency: Cortisol < 0.5 mcg/dL with no increase on Costyopin test and significant orthostasis. Hydrocortisone 100mg IV now, then 30mg PO QAM, 10mg in afternoon Random TSH pending. Repeat orthostatics qshift - can be discharged once no longer symptomatic from orthostasis. Follow up with endocrinology as outpatient. (2) Hypoparathyroidism: Unclear diagnosis as calcium level normal. Raises possibility of polyglandular autoimmune syndrome. Follow up with endocrinology as outpatient. (3) Syncope: Secondary to orthostasis suspected to be due to adrenal insufficiency as above. (4) Acute hypotension: Adrenal insufficiency in addition to dehydration on admission. Currently euvolemic. Stop IV fluids (5) Abnormal abdominal CT scan: Follow up with [facility] outpatient due to prominent ovarian follicles. Admission and Anticipated Discharge Date Admission Date: November 13, 2020 Subjective Corsyntopin test not performed correctly yesterday. Scheduled for this morning. Continued lightheadedness on standing but not yet had hydrocortisone due to pending Corsyntropin stimulation test. Review of Systems Review of Systems: All systems reviewed & are unremarkable except as noted in HPI & below Physical Exam Constitutional: well developed and well nourished; no acute distress Respiratory: normal respiratory effort, lungs clear to auscultation Cardiovascular: RRR, no murmur, no edema Gastrointestinal (Abdomen): normal bowel sounds, soft, nontender, no hepatosp lenomegaly Musculoskeletal: no cyanosis or clubbing, extremities motor strength 5/5 Skin: no rashes, warm and dry Neurologic: moves all extremities and awake; no focal motor deficits and not confused Psychiatric: A+Ox3, euthymic affect Results & Data Results & Data ([facility]) Vital Signs (Past 12 Hours) Vital Signs Temp Pulse Pulse Resp BP BP Pulse Ox 11/15/20 11:26 36.7 C 108 H 20 99/64 L 95 11/15/20 11:05 108 H 11/15/20 07:48 36.6 C 22 97 11/15/20 03:59 36.9 C 95 H 18 104/63 95 PG Care Time/CCT Total # of Minutes Spent Total Time Spent with Patient: Total time spent is greater than 50% in coordination of care (as documented) at patient's floor/unit and/or counseling patient: Coding Level of Care Code 52298 Subseq Obs Care Lvl 2 Diagnoses Adrenal insufficiency E27.40 Hypoparathyroidism E20.9 Syncope R55 Syncope type: unspecified Acute hypotension I95.[address] scan R93.5 (1) Syncope Syncope type: unspecified Qualified Code(s): R55 - Syncope and collapse
[2020-11-15] MEDS ORDERED: HYDROCORTISONE 10 MG TAB PO SCH (16:00)
[2020-11-16] MEDS ORDERED: HYDROCORTISONE 10 MG TAB PO SCH ×3 (08:30→09:00)
[2020-11-16] MEDS: MULTIVITAMIN TAB PO SCH (08:40)
--- NOTE | 2020-11-16 10:51 | Discharge Summary ---
Date of Service November 16, 2020 Admission HPI Per Admitting Provider 25-year-old previously healthy female presents to the ER after passing out while going to the bathroom. Patient was urinating when this happened. Patient states that she has been feeling ill for about 6 weeks at home. She states that in September she had upper respiratory infection such that she thought she might have had Covid. Patient was tested for Covid and was negative. Since that time she has been weak and dizzy presyncopal in her description when she stands up. She has difficulty walking about because she has these bouts of almost blacking out which she sort of Valsalvas to get through. She denies any vertiginous symptoms. She also has had persistent vomiting especially in the morning. Vomits foodstuffs from the night before sometimes. She states that with both the dizziness which prevent her from making meals and the vomiting she is had challenges keeping in food and liquids. She is also had some bright red blood per rectum intermittently but she thinks it might be hemorrhoids. She denies any other recent infectious symptoms. She lives out in the [facility] [place] a [place]. He denies any increased stressors with regards to her relationship with her . She denies any [id number] medications. She is on had her period since August but she has had a very variable. Over her lifetime. She currently has a negative Covid and test in the ER and despite having a D-dimer of 1800 had a negative CTA for PE and negative CT abdomen and pelvis with exception of 2 follicular cysts. I did curbside gynecology and they feel they do not need any immediate attention nor should they be related to her presyncopal and syncopal symptoms but that she would benefit from a [facility] follow-up in the future. The patient is currently switching to [facility] her primary care. The only other abnormality in the ER that besides the D-dimer is a mildly elevated calcium parathyroid hormone is ordered for the morning Admission Exam Per Admitting Provider The patient appeared well nourished and normally developed. Patient is very lean Vital signs as documented. Head exam is normocephalic atraumatic no scleral icterus conjunctivae are not pale Neck is without JVD, thyromegaly, or carotid bruits. No lymphadenopathy Lungs are clear to auscultation, no focal loss of breath sounds Cardiac exam, Rhythm is regular.. No murmurs, rubs or gallops. Abdominal exam reveals normal bowel sounds, soft non tender, no masses specifically no right lower quadrant tenderness rebound or guarding. Extremities are nonedematous and both pedal pulses are present Neurologic exam is alert and oriented, no focal loss of strength or sensation Skin is without bruises or rashes Principal Diagnosis Primary adrenal insufficiency Discharge Exam Dizziness vastly improved with hydrocortisone use. No further prescynope this morning. Constitutional well developed and well nourished; no acute distress Respiratory normal respiratory effort, lungs clear to auscultation Cardiovascular RRR, no murmur, no edema Gastrointestinal (Abdomen) normal bowel sounds, soft, nontender, no hepatosplenomegaly Musculoskeletal no cyanosis or clubbing, extremities motor strength 5/5 Skin no rashes, warm and dry Neurologic moves all extremities and awake; no focal motor deficits and not confused Psychiatric A+Ox3, euthymic affect Discharge Data Allergies Allergy/AdvReac Type Severity Reaction Status Date / Time No Known Allergies Allergy Verified 11/13/20 14:04 Consultations 11/13/20 17:36 Consult General Surgery Stat ED Decision to Admit Stat Ordered Studies 11/13/20 14:56 CT abd pelvis IV con only Stat IMPRESSION: 1. No evidence of bowel obstruction. No evidence of free air 2. No evidence of acute diverticulitis 3. 5 mm appendicolith in the middle of a long appendix. The appendix at this level and distal to this level is borderline thickened measuring 7 mm. There is however no periappendiceal stranding. This may therefore be chronic. Clinical correlation and follow-up is advocated. 4. Multiple prominent bilateral ovarian follicles measuring up to 43 mm in the right and 26 mm on the left. Ovarian hyperstimulation cannot be excluded. Correlation with any history of exogenous hormonal stimulation is recommended. CT angio chest PE protocol Stat IMPRESSION: 1. No acute intrathoracic findings 2. No evidence of acute pulmonary embolism 3. No evidence of focal pulmonary consolidation 4. No evidence of pathologic adenopathy 11/13/20 19:22 CT head/brain wo con Routine IMPRESSION: No acute intracranial abnormality. Hospital Course (1) Adrenal insufficiency: Gissel Casper is a 25 year old female who admitted to [facility] from November 13 to 2019 due to multiple episodes of syncope. On admission she was significantly orthostatic and subsequent workup revealed an undetectable cortisol level. Subsequent Cosyntropin stimulation test confirmed primary adrenal insufficiency. ACTH level is still pending at discharge. She was rehydrated with IV fluids and started on hydrocortisone with subsequent improvement with orthostasis. She will follow up [place] [facility] [place] discharge. Additionally PTH level was low with a mildly elevated calcium (normalized with IV hydration). This will also be followed up by endocrinology. She underwent multiple imaging studies. Most notably CT A/P showed multiple bilateral prominent ovarian follicles - possibly indicative of ovarian hyperstimulation. She was advised to follow up with gynecology regarding this. (2) Hypoparathyroidism: (3) Syncope: (4) Acute hypotension: (5) Abnormal abdominal CT scan: Total Time Total Time Spent Total Time Spent (In Minutes): 35 Discharge Plan Discharge Items Patient Disposition: Home - Self-Care Reason For Visit: PRESYNCOPE AND SYNCOPE Discharge Diagnosis: Primary adrenal insufficiency Condition on Discharge: Good Activity: Resume your previous activity Non-emergency contact: Primary Care Provider Call non-emergency contact if: you have any medication questions and your sympt oms worsen Follow-up/Referrals: Melo Cardozo MD [Physician] - (within the next week) PCP,NO [Primary Care Provider] - Diet: Regular Addtl Attending Provider Instructions: You were admitted to [facility] from November 13 to 2019 due to syncope. Subsequent workup revealed this was secondary to primary adrenal insufficiency treated with hydrocortisone. ACTH level is still pending at discharge. Please follow up with endocrinology within the next 1-2 weeks for continued management of this. Kind regards, Dr Alexander Payan Pending Studies at Discharge: Yes Stand-Alone Forms: My [facility] Medications and DC Order Prescriptions: New hydrocortisone [Cortef] 10 mg Tablet See Rx Instructions .ROUTE .COMPLEX Qty: 120 RF: 0 Continued multivitamin Tablet 1 tab PO DAILY RF: 0 Discharge Orders: Discharge Order (Routine); Ordered 11/16/20 Ordered By: Alexander Payan Admission Data Admit Date/Time: 11/15/20 14:37 Attending Provider: Alexander Payan Admit Provider: Doug Kennedy Primary Care Provider: PCP,NO Other Providers: Adelaide Small ; Doug Kennedy Other Interventions: Discharge Summary Assessment (RN) Last Done: 11/16/20 11:23 Coding Level of Care Code D/C Day Management >30 mins Diagnoses Adrenal insufficiency E27.40 Hypoparathyroidism E20.9 Syncope R55 Syncope type: unspecified Acute hypotension I95.[address] scan R93.5
== END 2020-11-16 11:45 | disposition home or self-care (01) | DRG 644 ==
LOC: 2N 12:57 → ED 12:57 → SUATTDRO 18:02 → 2N 18:30
DX: E31.0 Autoimmune polyglandular failure; E27.40 Unspecified adrenocortical insufficiency; R94.8 Abnormal results of function studies of other organs and systems; I95.1 Orthostatic hypotension; E20.9 Hypoparathyroidism, unspecified; K92.2 Gastrointestinal hemorrhage, unspecified; E86.0 Dehydration

== ENCOUNTER 2021-08-24 16:23 | Inpatient (IN) ==
[2021-08-24] MEDS ORDERED: LACTATED RINGER'S 1,000 ML IV ONE ×3 (16:45→20:43)
[2021-08-24] MEDS ORDERED: ONDANSETRON INJ 2 MG/ML 2 ML VIAL IV STA (16:45)
[2021-08-24] MEDS ORDERED: HYDROCORTISONE SOD SUCCINATE 100 MG/2 ML VIAL IV STA ×2 (16:45→20:46)
[2021-08-24 17:22] LABS: Basophils # (auto) 0.08 K/uL (0-0.2); Basophils % (auto) 0.8 %; Eosinophils # (auto) 0.43 K/uL (0-0.5); Eosinophils % (auto) 4.3 %; Hematocrit (blood only) 47.9 % (37-47); Hemoglobin 17.6 g/dL (12.0-16.0); Immature Granulocytes # (auto) 0.03 K/uL (0.00-0.02); Immature Granulocytes % (auto) 0.3 %; Lymphocytes # (auto) 2.85 K/uL (1.2-3.4); Lymphocytes % (auto) 28.2 %; Mean Corpuscular Hemoglobin 29.8 pg (25-34); Mean Corpuscular Hgb Conc 36.7 g/dL (32-36); Mean Platelet Volume 10.5 fL (7.4-10.4); Monocytes # (auto) 0.89 K/uL (0.11-0.59); Monocytes % (auto) 8.8 %; Neutrophils # (auto) 5.83 K/uL (1.4-6.5); Neutrophils % (auto) 57.6 %; Platelet Count 361 K/uL (130-400); RDW Coefficient of Variation 12.4 % (11.5-14.5); RDW Standard Deviation 37.1 fL (36.4-46.3); Red Blood Count 5.91 M/uL (4.2-5.4); White Blood Count 10.11 K/uL (4.8-10.8)
[2021-08-24 17:40] LABS: Pregnancy Test, Serum Negative (Negative)
--- NOTE | 2021-08-24 18:23 | Emergency Department Note ---
History of Present Illness General Chief complaint: Shortness of Breath/Dyspnea Stated complaint: SOB, LIGHT HEADED, LOW BP, ADRENAL CRISIS Time Seen by Provider: 08/24/21 16:37 Source: patient Mode of arrival: ambulatory Limitations: no limitations History of Present Illness Provider complaint: Dizziness, nausea and vomiting Onset (ago): day(s) 3 Maximum Pain Intensity: 2 Associated symptoms: + loss of appetite, + nausea/vomiting and + weakness; no chest pain, no fever/chills, no headaches, no shortness of breath or no syncope Treatments prior to arrival: none This is a 26-year-old female with a recent diagnosis of Reji's disease who presents due to concern for dehydration. Patient states Thursday evening she began noticing some slight nausea. States nausea and dry heaving into and she did have one episode of vomiting. She states she developed some mild upper central abdominal pain accompanying this. Denies diarrhea or change in bowel movements. 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 She denies any fevers or chills. States symptoms continued into today and while she was able to keep down a small sip of water to take her usual medication, she was unable to tolerate anything else by mouth and began to feel more persistently lightheaded and dizzy with attempts at sitting up or standing the day. Patient denies any syncopal event. She denies any accompanying chest pain or shortness of breath. No other recent change in medications or diet. She denies chance of . Pt seen during a time of high acuity and national emergency pandemic while wearing PPE. Home Medications Medication Instructions Recorded Confirmed Type multivitamin 1 tab PO DAILY 11/13/20 08/24/21 History fludrocortisone 0.1 mg tablet 0.05 mg PO DAILY #90 tab 12/12/20 08/24/21 Rx hydrocortisone 5 mg tablet See Rx Instructions PO .COMPLEX 06/26/21 08/24/21 Rx #270 tab levothyroxine 100 mcg tablet 100 mcg PO DAILY #90 tab 06/26/21 08/24/21 Rx Allergies Allergy/AdvReac Type Severity Reaction Status Date / Time No Known Allergies Allergy Verified 08/24/21 17:21 Past Med/Surg History Medical History Abnormal abdominal CT scan Goiter History of ovarian cyst Hypothyroidism Ovarian cyst Premature ovarian failure Thyroid pain Surgical History No pertinent past surgical history Family History Grandmother (Paternal) Hypothyroidism Father Hyperthyroidism Denies family history of Ovarian cancer Prostate cancer Myocardial infarction Breast cancer Colorectal cancer Social History Smoking Status: Never smoker Hx Alcohol Use: Yes Alcohol Intake Frequency: Monthly or Less Hx Substance Use: No Preferred Language: Maldivian Communication Ability: Effective Hall Cleaner Required: No Beliefs That Will Affect Care: None marital status: Current Living Situation: Spouse current occupational status: employed Feels Safe at Home: Yes Safety Concerns: Feels Safe At This Time caffeine: Yes Dental Care, Regularly: No Physical Activity Frequency: Daily Seatbelt Use: always Sunscreen Use: Yes Assistive Devices: Glasses Review of Systems A total of 10 systems reviewed and were otherwise negative All systems reviewed & are unremarkable except as noted in HPI & below Physical Exam Vital Signs Vital Signs - 24 hr 08/24/21 16:29 08/24/21 17:18 08/24/21 18:00 Temperature 36.5 C 36.9 C Temperature Source Temporal Artery Scan Oral Pulse Rate 127 H Pulse Rate [Apical] 98 H Respiratory Rate 20 18 Respiratory Effort / Characteristics Non-Labored Spontaneous Non-Labored Spontaneous Respiratory Depth Normal Normal Normal Respiratory Pattern Regular Regular Blood Pressure 96/65 L Blood Pressure [Left Arm] 123/86 Blood Pressure Mean 75 Blood Pressure Mean [Left Arm] 98 Blood Pressure Position Sitting Pulse Oximetry 97 99 Oxygen Delivery Method Room Air Room Air Sepsis Recent Fever Within 48 Hours No Sepsis New/Unexplained Change in Mental Status N/A Sepsis Action Taken by Nursing No Action Required GENERAL: alert, ill appearing, well nourished, no distress, non-toxic, pt supine EYE EXAM: normal conjunctiva, PERRL and EOM's grossly intact OROPHARYNX: no exudate, no erythema, lips, buccal mucosa, and tongue normal and mucous membranes are moist NECK: supple, no nuchal rigidity, no adenopathy, non-tender LUNGS: Clear to auscultation. Normal chest wall mechanics, no w/r/r HEART: no murmurs, S1 normal and S2 normal, sinus tachycardia on telemetry ABDOMEN: abdomen soft, non-tender, normo-active bowel sounds, no masses, no rebound or guarding. BACK: Back is symmetrical on inspection and there is no deformity, no midline tenderness, no CVA tenderness. SKIN: no rashes and no bruising UPPER EXTREMITIES: upper extremities are grossly normal. FROM, nml pulses b/l. LOWER EXTREMITIES: No pitting edema. FROM, nml pulses b/l. NEURO EXAM: Normal sensorium, cranial nerves II-XII grossly intact, normal speech, no gross weakness of arms, no gross weakness of legs. Gross sensation intact. Course Course 1851: Pt now sitting upright in bed. States feeling improved, still dizzy with standing though. HR improved at 99. Patient states she is hungry. Will try ice chips. 2024: Pt states she is feeling better. 2244: Pt states she continues to feel improved. Ambulated to the bathroom without any orthostatic symptoms. Tolerated sips of water bedside. Administered Medications Fludrocortisone Acetate (Fludrocortisone Acetate 0.1 Mg Tab) 0.05 mg PO DAILY [facility] Stop: 09/24/21 08:59 Last Admin: 08/25/21 08:50 Dose: 0.05 mg Documented by: [id number] Lactated Ringer's (Lr) 1,000 mls @ 150 mls/hr IV .Q6H40M [facility] Stop: 09/24/21 13:44 Last Admin: 08/25/21 21:23 Dose: 150 mls/hr Documented by: [id number] Infusion: 08/25/21 21:21 Dose: 150 mls/hr Documented by: [id number] Admin: 08/25/21 14:40 Dose: 150 mls/hr Documented by: [id number] Levothyroxine Sodium (Levothyroxine Sodium 100 Mcg Tablet) 100 mcg PO DAILYBB [facility] Stop: 09/24/21 08:59 Last Admin: 08/25/21 06:20 Dose: 100 mcg Documented by: [id number] Discontinued Medications Calcium Gluconate (Calcium Gluconate 1000 Mg/60 Ml Nss) Confirm Administered Dose 1,000 mg IV .STK-MED ONE Stop: 08/25/21 04:30 Last Admin: 08/25/21 05:16 Dose: Not Given Documented by: [id number] Hydrocortisone (Hydrocortisone 10 Mg Tab) 5 mg PO TODAY@1900 [facility] Stop: 08/25/21 19:01 Last Admin: 08/25/21 19:07 Dose: 5 mg Documented by: [id number] Hydrocortisone Sodium Succinate (Hydrocortisone Sod Succinate 100 Mg/2 Ml Vial) 50 mg IV NOW STA Stop: 08/24/21 16:46 Last Admin: 08/24/21 17:18 Dose: 50 mg Documented by: [id number] Hydrocortisone Sodium Succinate (Hydrocortisone Sod Succinate 100 Mg/2 Ml Vial) 50 mg IV NOW STA Stop: 08/24/21 20:47 Last Admin: 08/24/21 21:01 Dose: 50 mg Documented by: [id number] Hydrocortisone Sodium Succinate (Hydrocortisone Sod Succinate 100 Mg/2 Ml Vial) 100 mg IV Q8H [facility] Stop: 09/24/21 00:00 Last Admin: 08/25/21 07:31 Dose: Not Given Documented by: [id number] Hydrocortisone Sodium Succinate (Hydrocortisone Sod Succinate 100 Mg/2 Ml Vial) Confirm Administered Dose 100 mg .ROUTE .STK-MED ONE Stop: 08/25/21 04:31 Last Admin: 08/25/21 05:16 Dose: Not Given Documented by: [id number] Lactated Ringer's (Lr) 1,000 mls @ 999 mls/hr IV .Q1H1M ONE Stop: 08/24/21 17:45 Last Infusion: 08/24/21 18:46 Dose: 0 mls/hr Documented by: [id number] Admin: 08/24/21 17:18 Dose: 999 mls/hr Documented by: [id number] Lactated Ringer's (Lr) 1,000 mls @ 999 mls/hr IV .Q1H1M ONE Stop: 08/24/21 18:51 Last Infusion: 08/24/21 19:46 Dose: 0 mls/hr Documented by: [id number] Admin: 08/24/21 18:30 Dose: 999 mls/hr Documented by: [id number] Lactated Ringer's (Lr) 1,000 mls @ 999 mls/hr IV .Q1H1M ONE Stop: 08/24/21 21:43 Last Infusion: 08/24/21 22:39 Dose: 0 mls/hr Documented by: [id number] Admin: 08/24/21 21:05 Dose: 999 mls/hr Documented by: [id number] Calcium Gluconate () 1,000 mg in 60 mls @ 240 mls/hr IV NOW STA Stop: 08/24/21 20:57 Last Infusion: 08/24/21 21:31 Dose: 0 mls/hr Documented by: [id number] Admin: 08/24/21 21:01 Dose: 240 mls/hr Documented by: [id number] Calcium Gluconate 1,000 mg/ (Sodium Chloride) 60 mls @ 240 mls/hr IV NOW ONE Stop: 08/25/21 00:25 Last Admin: 08/25/21 07:33 Dose: Not Given Documented by: [id number] Hydrocortisone Sodium (Succinate 100 mg/ Syringe) 2 mls @ 4 mls/min IV Q8H ASHA Stop: 09/24/21 04:59 Last Admin: 08/25/21 14:39 Dose: 4 mls/min Documented by: [id number] Admin: 08/25/21 05:16 Dose: 4 mls/min Documented by: [id number] Ondansetron HCl (Ondansetron Inj 2 Mg/Ml 2 Ml Vial) 4 mg IV NOW STA Stop: 08/24/21 16:46 Last Admin: 08/24/21 17:18 Dose: 4 mg Documented by: [id number] Patiromer (Patiromer Calcium Sorbitex 8.4 Gm Pack) 8.4 gm PO NOW STA Stop: 08/24/21 22:53 Last Admin: 08/24/21 23:12 Dose: 8.4 gm Documented by: [id number] Sodium Bicarbonate (Sodium Bicarb 8.4% Inj 50 Meq/50 Ml Syr) 50 meq IV NOW STA Stop: 08/24/21 22:53 Last Admin: 08/24/21 23:01 Dose: 50 meq Documented by: [id number] Medical Decision Making Differential Diagnosis Differential: Gastroenteritis, Food Borne, Esophageal Perforation, , Electrolyte Abnormality, Dehydration, Intraabdominal Infection, UTI/Pyelonephritis, Bowel Obstruction, Biliary Pathology, amongst other pathology entertained. Medical Records Attestation: I reviewed the patient's medical records. Home Medications Current Medication List: was personally reviewed by me Laboratory Data Attestation: I reviewed the patient's lab results. Result diagrams: 08/24/21 17:14 08/25/21 08:23 Lab Results 08/24/21 08/24/21 08/24/21 Range/Units 17:14 17:14 17:14 WBC 10.11 (4.8-10.8) K/uL RBC 5.91 H (4.2-5.4) M/uL Hgb 17.6 H (12.0-16.0) g/dL POC Hgb (12.0-16.0) g/dl Hct 47.9 H (37-47) % POC Hct (37-47) % MCV 81.0 (80-100) fL MCH 29.8 (25-34) pg MCHC 36.7 H (32-36) g/dL RDW Std Deviation 37.1 (36.4-46.3) fL RDW Coeff of Titi 12.4 (11.5-14.5) % Plt Count 361 (130-400) K/uL MPV 10.5 H (7.4-10.4) fL Immature Gran % (Auto) 0.3 % Neut % (Auto) 57.6 % Lymph % (Auto) 28.2 % Wayne % (Auto) 8.8 % Eos % (Auto) 4.3 % Baso % (Auto) 0.8 % Neut # (Auto) 5.83 (1.4-6.5) K/uL Lymph # (Auto) 2.85 (1.2-3.4) K/uL Wayne # (Auto) 0.89 H (0.11-0.59) K/uL Eos # (Auto) 0.43 (0-0.5) K/uL Baso # (Auto) 0.08 (0-0.2) K/uL Immature Gran # (Auto) 0.03 H (0.00-0.02) K/uL POC Sodium (135-144) mmol/L Sodium 121 L (136-145) mmol/L POC Potassium (3.3-5.0) mmol/L Potassium 7.2 H* (3.5-5.1) mmol/L POC Chloride (101-112) mmol/L Chloride 92 L (98-107) mmol/L Carbon Dioxide 25 (21-32) mmol/L POC Total CO2 (24-31) mmol/L Anion Gap 4.0 (3-11) POC Anion Gap (16-25) mmol/L POC BUN (7-18) mg/dl BUN 24 H (7-18) mg/dl Creatinine 1.33 H (0.6-1.2) mg/dl POC Creatinine (0.6-1.3) mg/dl Est Cr Clr Drug Dosing 69.9 ml/min Est GFR ( Amer) 64.2 ml/min Est GFR (Non-Af Amer) 55.4 ml/min BUN/Creatinine Ratio 17.9 (10-20) Glucose 102 H (70-99) mg/dl POC Glucose (other) (70-99) mg/dl Calcium 10.7 H (8.5-10.1) mg/dl POC Ioniz Calcium Kirsten (1.12-1.32) mmol/l Magnesium 1.9 (1.8-2.4) mg/dl Total Bilirubin 0.9 (0.2-1) mg/dl AST 37 (15-37) U/L ALT 25 (12-78) U/L Alkaline Phosphatase 79 (45-117) U/L Total Protein 10.0 H (6.4-8.2) gm/dl Albumin 4.7 (3.4-5.0) gm/dl Globulin 5.3 H (2.5-4.0) gm/dl Albumin/Globulin Ratio 0.9 (0.9-2) Lipase 201 (73-393) U/L TSH 1.550 (0.300-4.500) uIu/ml HCG, Qual Negative (Negative) Specimen Hemolysis Urine Color Urine Appearance (Clear) Urine pH (4.5-7.5) Ur Specific [place] (1.000-1.030) Urine Protein (Negative) Urine Glucose (UA) (Negative) Urine Ketones (Negative) Urine Blood (Negative) Urine Nitrite (Negative) Urine Bilirubin (Negative) Urine Urobilinogen (Negative) Ur Leukocyte Esterase (Negative) Urine WBC (Auto) (0-5) /hpf Urine RBC (Auto) (0-4) /hpf U Hyaline Cast (Auto) (0-5) /lpf U Epithel Cells (Auto) (0-5) /lpf Urine Bacteria (Auto) (Negative) COVID-19 Eval Order SARS-CoV-2 (PCR) (Negative) 08/24/21 08/24/21 08/24/21 Range/Units 19:17 19:45 20:18 WBC (4.8-10.8) K/uL RBC (4.2-5.4) M/uL Hgb (12.0-16.0) g/dL POC Hgb 16.3 H (12.0-16.0) g/dl Hct (37-47) % POC Hct 48 H (37-47) % MCV (80-100) fL MCH (25-34) pg MCHC (32-36) g/dL RDW Std Deviation (36.4-46.3) fL RDW Coeff of Titi (11.5-14.5) % Plt Count (130-400) K/uL MPV (7.4-10.4) fL Immature Gran % (Auto) % Neut % (Auto) % Lymph % (Auto) % Wayne % (Auto) % Eos % (Auto) % Baso % (Auto) % Neut # (Auto) (1.4-6.5) K/uL Lymph # (Auto) (1.2-3.4) K/uL Wayne # (Auto) (0.11-0.59) K/uL Eos # (Auto) (0-0.5) K/uL Baso # (Auto) (0-0.2) K/uL Immature Gran # (Auto) (0.00-0.02) K/uL POC Sodium 126 L (135-144) mmol/L Sodium 123 L (136-145) mmol/L POC Potassium 6.7 H* (3.3-5.0) mmol/L Potassium (3.5-5.1) mmol/L POC Chloride 95 L (101-112) mmol/L Chloride 94 L (98-107) mmol/L Carbon Dioxide 24 (21-32) mmol/L POC Total CO2 23 L (24-31) mmol/L Anion Gap 5.0 (3-11) POC Anion Gap 17.0 (16-25) mmol/L POC BUN 24 H (7-18) mg/dl BUN 23 H (7-18) mg/dl Creatinine 1.24 H (0.6-1.2) mg/dl POC Creatinine 1.1 (0.6-1.3) mg/dl Est Cr Clr Drug Dosing 75.0 ml/min Est GFR ( Amer) 69.9 ml/min Est GFR (Non-Af Amer) 60.3 ml/min BUN/Creatinine Ratio 18.5 (10-20) Glucose 95 (70-99) mg/dl POC Glucose (other) 98 (70-99) mg/dl Calcium 9.6 (8.5-10.1) mg/dl POC Ioniz Calcium Kirsten 1.22 (1.12-1.32) mmol/l Magnesium (1.8-2.4) mg/dl Total Bilirubin (0.2-1) mg/dl AST (15-37) U/L ALT (12-78) U/L Alkaline Phosphatase (45-117) U/L Total Protein (6.4-8.2) gm/dl Albumin (3.4-5.0) gm/dl Globulin (2.5-4.0) gm/dl Albumin/Globulin Ratio (0.9-2) Lipase (73-393) U/L TSH (0.300-4.500) uIu/ml HCG, Qual (Negative) Specimen Hemolysis Cancelled Urine Color Yellow Urine Appearance Clear (Clear) Urine pH 8.5 H (4.5-7.5) Ur Specific [place] 1.008 (1.000-1.030) Urine Protein Negative (Negative) Urine Glucose (UA) Negative (Negative) Urine Ketones Trace H (Negative) Urine Blood Negative (Negative) Urine Nitrite Negative (Negative) Urine Bilirubin Negative (Negative) Urine Urobilinogen Negative (Negative) Ur Leukocyte Esterase Trace H (Negative) Urine WBC (Auto) 1-5 (0-5) /hpf Urine RBC (Auto) 0-4 (0-4) /hpf U Hyaline Cast (Auto) 0 (0-5) /lpf U Epithel Cells (Auto) 10-20 H (0-5) /lpf Urine Bacteria (Auto) Negative (Negative) COVID-19 Eval Order SARS-CoV-2 (PCR) (Negative) 08/24/21 08/24/21 08/24/21 Range/Units 22:51 23:05 23:05 WBC (4.8-10.8) K/uL RBC (4.2-5.4) M/uL Hgb (12.0-16.0) g/dL POC Hgb 15.3 (12.0-16.0) g/dl Hct (37-47) % POC Hct 45 (37-47) % MCV (80-100) fL MCH (25-34) pg MCHC (32-36) g/dL RDW Std Deviation (36.4-46.3) fL RDW Coeff of Titi (11.5-14.5) % Plt Count (130-400) K/uL MPV (7.4-10.4) fL Immature Gran % (Auto) % Neut % (Auto) % Lymph % (Auto) % Wayne % (Auto) % Eos % (Auto) % Baso % (Auto) % Neut # (Auto) (1.4-6.5) K/uL Lymph # (Auto) (1.2-3.4) K/uL Wayne # (Auto) (0.11-0.59) K/uL Eos # (Auto) (0-0.5) K/uL Baso # (Auto) (0-0.2) K/uL Immature Gran # (Auto) (0.00-0.02) K/uL POC Sodium 128 L (135-144) mmol/L Sodium (136-145) mmol/L POC Potassium 6.7 H* (3.3-5.0) mmol/L Potassium (3.5-5.1) mmol/L POC Chloride 97 L (101-112) mmol/L Chloride (98-107) mmol/L Carbon Dioxide (21-32) mmol/L POC Total CO2 23 L (24-31) mmol/L Anion Gap (3-11) POC Anion Gap 16.0 (16-25) mmol/L POC BUN 22 H (7-18) mg/dl BUN (7-18) mg/dl Creatinine (0.6-1.2) mg/dl POC Creatinine 1.1 (0.6-1.3) mg/dl Est Cr Clr Drug Dosing ml/min Est GFR ( Amer) ml/min Est GFR (Non-Af Amer) ml/min BUN/Creatinine Ratio (10-20) Glucose (70-99) mg/dl POC Glucose (other) 107 H (70-99) mg/dl Calcium (8.5-10.1) mg/dl POC Ioniz Calcium Kirsten 1.27 (1.12-1.32) mmol/l Magnesium (1.8-2.4) mg/dl Total Bilirubin (0.2-1) mg/dl AST (15-37) U/L ALT (12-78) U/L Alkaline Phosphatase (45-117) U/L Total Protein (6.4-8.2) gm/dl Albumin (3.4-5.0) gm/dl Globulin (2.5-4.0) gm/dl Albumin/Globulin Ratio (0.9-2) Lipase (73-393) U/L TSH (0.300-4.500) uIu/ml HCG, Qual (Negative) Specimen Hemolysis Urine Color Urine Appearance (Clear) Urine pH (4.5-7.5) Ur Specific [place] (1.000-1.030) Urine Protein (Negative) Urine Glucose (UA) (Negative) Urine Ketones (Negative) Urine Blood (Negative) Urine Nitrite (Negative) Urine Bilirubin (Negative) Urine Urobilinogen (Negative) Ur Leukocyte Esterase (Negative) Urine WBC (Auto) (0-5) /hpf Urine RBC (Auto) (0-4) /hpf U Hyaline Cast (Auto) (0-5) /lpf U Epithel Cells (Auto) (0-5) /lpf Urine Bacteria (Auto) (Negative) COVID-19 Eval Order Covid19 at [facility] SARS-CoV-2 (PCR) NEGATIVE (Negative) Imaging Data Radiologist's Impression: Chest/Abdomen X-ray 08/24/21 16:45 XR abdomen 2V w PA chest INDICATION: MN ^n/v, abd pain . TECHNIQUE: 2 views of the abdomen were obtained. A single view of the chest was obtained. Comparison: Comparison is made to chest one view 11/13/2020 FINDINGS: No lines and tubes are seen. The cardiomediastinal silhouette is normal. The lungs are clear. No evidence of pleural effusion or pneumothorax. The osseous structures are grossly unremarkable. The bowel gas pattern is nonobstructive. A moderate amount of stool is noted within the large bowel. Diffuse radiodensities are seen projecting over the bowel which is nonspecific and may represent ingested material. IMPRESSION: Nonobstructive bowel gas pattern. ACT 112: Negative or not required by law. Electronically signed by: Daniel Guzman M.D. 08/24/2021 6:28 PM ECG Data Attestation: I personally reviewed and interpreted this ECG as follows: Indication: + vomiting Rate (beats per minute): 106 Rhythm: + sinus tachycardia ECG Intervals/blocks: + Normal QRS and + Normal QT ECG [place]: + Normal ECG ST segments: + Normal ST segments MDM Narrative This is a 26-year-old female presents due to concern for persistent nausea, vomiting, and dehydration. No syncopal events although patient does have orthostatic symptoms and was supine initially. 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 She has been able to continue taking her steroids at home despite the nausea and intermittent vomiting. Blood work drawn and sent and patient started on IV fluids. Patient began to improve dramatically after repletion of volume. Patient was given additional hydrocortisone IV. Patient given a dose of nausea medication and felt improved. Initial labs were hemolyzed as reported by the label stamper with significant hyperkalemia. We did repeat this and they called again to say that they were still hemolyzed. At that point time a [id number]-tu-sibz Chem-8 was obtained which still showed hyperkalemia of 6.7. Patient continued to receive IV fluids, calcium gluconate was added as a precaution although no ectopy or peak T waves were noted. No prior history of other renal abnormalities. No evidence of MELISSA on her labs otherwise. Patient was found to be hyponatremic, although I suspect this was in combination with hypovolemia and her Reji's. After additional IV fluids given and patient reported feeling markedly improved and was tolerating p.o., repeat Chem-8 was checked and patient still with hyponatremia and hyperkalemia although it was improved. Due to persistent abnormalities and concern for condition as well as risks associated with her Mcnairy's, case discussed with hospitalist for additional evaluation and management. Additional medications added for hyperkalemia. No evidence of hemodynamic instability. An order was placed for continuous cardiac monitoring. The monitor shows a rate of _86__ with _normal sinus__ rhythm. Patient has no family history of Mcnairy's or CKD. Patient was first seen and observation began at 1637 and was necessary in order to replete patient's volume with IV fluids and treat symptoms, recheck patient's abnormal electrolytes. Upon re-evaluation, 5 hours of observation revealed that the patient should be admitted. Case discussed with hospitalist at 2300. Impression & Plan Nausea & vomiting, Dehydration, Acute hyperkalemia, Acute hyponatremia Discharge Plan Visit Data Chief Complaint: Shortness of Breath/Dyspnea Stated Complaint: SOB, LIGHT HEADED, LOW BP, ADRENAL CRISIS ED Provider: Mckenzie Pino Discharge Problem: Nausea & vomiting, Dehydration, Acute hyperkalemia, Acute hyponatremia Patient Disposition: Admitted As Inpatient Discharge Instructions Interventions: ED Discharge Assessment Last Done: 08/25/21 04:26 Discharge Problem: Nausea & vomiting Qualifiers: Vomiting type: unspecified Vomiting Intractability: non-intractable Qualified Code(s): R11.2 - Nausea with vomiting, unspecified
--- NOTE | 2021-08-24 18:30 | XRay Report ---
XR abdomen 2V w PA chest INDICATION: MN ^n/v, abd pain . TECHNIQUE: 2 views of the abdomen were obtained. A single view of the chest was obtained. Comparison: Comparison is made to chest one view 11/13/2020 FINDINGS: No lines and tubes are seen. The cardiomediastinal silhouette is normal. The lungs are clear. No evid ence of pleural effusion or pneumothorax. The osseous structures are grossly unremarkable. The bowel gas pattern is nonobstructive. A moderate amount of stool is noted within the large bowel. Diffuse radiodensities are seen projecting over the bowel which is nonspecific and may represent ingested material. IMPRESSION: Nonobstructive bowel gas pattern. ACT 112: Negative or not required by law. Electronically signed by: Daniel Guzman M.D. 08/24/2021 6:28 PM
[2021-08-24 19:03] LABS: Albumin Globulin Ratio 0.9 (0.9-2); Albumin Level 4.7 gm/dl (3.4-5.0); BUN Creatinine Ratio 17.9 (10-20); Bilirubin,Total 0.9 mg/dl (0.2-1); Calcium 10.7 mg/dl (8.5-10.1); Creatinine Clr Calc Pharmacy 69.9 ml/min; Est GFR (African American) 64.2 ml/min; Est GFR (Non-African American) 55.4 ml/min; Globulin 5.3 gm/dl (2.5-4.0); Magnesium 1.9 mg/dl (1.8-2.4); Potassium 7.2 mmol/L (3.5-5.1); Thyroid Stimulating Hormone 1.55 uIu/ml (0.300-4.500)
[2021-08-24 19:53] LABS: BUN Creatinine Ratio 18.5 (10-20); Calcium 9.6 mg/dl (8.5-10.1); Est GFR (African American) 69.9 ml/min; Est GFR (Non-African American) 60.3 ml/min
[2021-08-24 19:56] LABS: Appearance Urine Clear (Clear); Bacteria Urine Automated Negative (Negative); Bilirubin Urine Negative (Negative); Blood Urine Negative (Negative); Cast Urine Automated 0 /lpf (0-5); Color Urine Yellow; Glucose Urine UA Negative (Negative); Ketones Urine Trace (Negative); Leukocyte Esterase Urine Trace (Negative); Nitrite Urine Negative (Negative); Protein Urine Negative (Negative); RBC Urine Automated 0-4 /hpf (0-4); Specific Gravity Urine 1.008 (1.000-1.030); Urobilinogen Urine Negative (Negative); pH Urine 8.5 (4.5-7.5)
[2021-08-24 20:30] LABS: iSTAT Creatinine 1.1 mg/dl (0.6-1.3); iSTAT Hemoglobin 16.3 g/dl (12.0-16.0); iSTAT Ionized Calcium 1.22 mmol/l (1.12-1.32); iSTAT Potassium 6.7 mmol/L (3.3-5.0)
[2021-08-24] MEDS ORDERED: CALCIUM GLUCONATE 1,000 MG/60 ML BAG IV STA (20:43)
[2021-08-24] MEDS ORDERED: PATIROMER CALCIUM SORBITEX 8.4 GM PACK PO STA (22:52)
[2021-08-24] MEDS ORDERED: SODIUM BICARB 8.4% INJ 50 MEQ/50 ML SYR IV STA (22:52)
[2021-08-24 23:04] LABS: iSTAT Creatinine 1.1 mg/dl (0.6-1.3); iSTAT Hemoglobin 15.3 g/dl (12.0-16.0); iSTAT Ionized Calcium 1.27 mmol/l (1.12-1.32); iSTAT Potassium 6.7 mmol/L (3.3-5.0)
--- NOTE | 2021-08-24 23:42 | History & Physical Report ---
Date of Service August 24, 2021 Assessment & Plan (1) Adrenal insufficiency: (2) Hypothyroidism: (3) Premature ovarian failure: (4) Acute hyperkalemia: (5) Acute hyponatremia: Plan: 26-year-old female past medical history significant for Guayanilla's disease, hypothyroidism, premature ovarian failure admitted for management of hyperkalemia and hyponatremia suspected to be secondary to adrenal insufficiency. Guayanilla's disease, adrenal insufficiency: -Diagnosed several months ago and follows with Endocrinology; at that time noted to have elevated ACTH and symptoms that resolved with hydrocortisone therapy. -Per patient has been decreasing hydrocortisone dosing at the instruction of Endocrinology; reports that in the summer due to long days in the heat and increased stress generally requires larger doses of steroids. -While patient did present today with BP 90s/50s, this is patient's baseline and appears clinically dry and therefore would not label patient has adrenal crisis, but rather as adrenal insufficiency. -We will continue fludrocortisone 0.[address] patient on stress dose Solu-Cortef 100 mg IV every 8 hours. -Encouraged patient to discuss outpatient stress dose steroid regimen during illnesses with distribution center supervisor at follow-up visit. Hypokalemia: -Initial presenting potassium of 7.2, hemolyzed. Opajz-uj-jwcv potassium of 6.7 x2. Patient has already received both Veltassa and bicarb. Will add calcium gluconate 1000mg x1. -No EKG changes or arrhythmias noted on cardiac monitoring. Continue monitoring given hyperK. -Repeat BMP at 5AM. -Suspected to be secondary to decreased aldosterone due to adrenal insufficiency. Treatment with IV fluids and stress dose steroids. Hyponatremia: -Presented with Na of 121, improved to 123 two hours later. Has received a total of 3 L LR, will hold off on further IV fluids until repeat BMP at 5 AM; will also check urine/serum osmolality and urine Na at that time. -Suspect overall clinical picture to improve with stress dose steroids and adequate p.o. intake of fluids. Overall clinical picture suspected to be secondary to gastrointestinal illness perpetuating adrenal insufficiency. -Continue to encourage p.o. fluid intake. Can consider addition of sodium tablets if patient's sodium were to increase too precipitously with the next BMP. MELISSA: -Presented with creatinine of 1.33 with a normal baseline. Does appear overall clinically dry (hemoconcentrated hemoglobin, several days of nausea and vomiting, poor p.o. fluid intake). -Received IV fluids in ER, 3 L lactated Ringer's. -Hold off on further IV fluids due to hyponatremia as described above to prevent rapid overcorrection. Encourage p.o. fluid intake. Repeat BMP at 5 AM. Gastroenteritis: -Likely the precipitating cause of patient's electrolyte abnormalities and need for stress dose steroids. -Patient is currently asymptomatic after receiving Zofran and several liters IV fluid. -Patient can have regular diet and eat as tolerated, encourage p.o. fluid intake. -Zofran prn nausea. Hypothyroidism: -TSH 1.550 today. Continue home dose levothyroxine. Premature ovarian failure: -Being currently managed by [facility]. -No acute intervention this admission. CODE STATUS: Full code DVT prophylaxis: SCDs while in bed, ambulate on demand, low risk FEN: Regular diet, encourage p.o. intake, no further IV fluids at this time Dispo: Med/Surg with telemetry for cardiac monitoring given hyperkalemia History of Present Illness Chief Complaint: GI illness, electrolyte abnormalities Primary Care Provider: Leandra Francisco MD 26-year-old female past medical history significant for Reji's disease follows with endocrinology, hypothyroidism, premature ovarian failure presented to the ER for 3 to 4 days of GI illness, predominantly nausea and vomiting. Today started to develop lightheaded sensation with attempts at sitting up or standing in the setting of being unable to tolerate p.o. intake save for small sips of water for medications. In the ER noted to be tachycardic to the 110s and mildly hypotensive to 90s/50s. Lab work in the ER notable for potassium of 7.2 noted to be hemolyzed. Mwoue-ye-pvke potassium x2 of 6.7. Sodium 121 (baseline 135 in prior labwork), creatinine 1.24, TSH 1.550 stable from baseline. Patient received Patiromer 8.4 grams p.o., and also received a total of 100 mg Solu-Cortef, 3 L lactated Ringer's. Repeat Na 123 two hours after prior check. On my interview patient reports feeling well without nausea or vomiting, no shortness of breath, no lightheadedness sitting up in bed. Allergies Allergy/AdvReac Type Severity Reaction Status Date / Time No Known Allergies Allergy Verified 08/24/21 17:21 Home Medications Medication Instructions Recorded Confirmed Type multivitamin 1 tab PO DAILY 11/13/20 08/24/21 History fludrocortisone 0.1 mg tablet 0.05 mg PO DAILY #90 tab 12/12/20 08/24/21 Rx hydrocortisone 5 mg tablet See Rx Instructions PO .COMPLEX 06/26/21 08/24/21 Rx #270 tab levothyroxine 100 mcg tablet 100 mcg PO DAILY #90 tab 06/26/21 08/24/21 Rx Past Med/Surg History Medical History Abnormal abdominal CT scan Goiter History of ovarian cyst Hypothyroidism Ovarian cyst Premature ovarian failure Thyroid pain Surgical History No pertinent past surgical history Family History Grandmother (Paternal) Hypothyroidism Father Hyperthyroidism Denies family history of Ovarian cancer Prostate cancer Myocardial infarction Breast cancer Colorectal cancer Social History Smoking Status: Never smoker Hx Alcohol Use: Yes Alcohol Intake Frequency: Monthly or Less Hx Substance Use: No Preferred Language: Khmer Communication Ability: Effective Wind Up Operator Required: No Beliefs That Will Affect Care: None marital status: Current Living Situation: Spouse current occupational status: employed Feels Safe at Home: Yes Safety Concerns: Feels Safe At This Time caffeine: Yes Dental Care, Regularly: No Physical Activity Frequency: Daily Seatbelt Use: always Sunscreen Use: Yes Assistive Devices: Glasses Review of Systems Review of Systems: All systems reviewed & are unremarkable except as noted in HPI & below Constitutional: no fever, no chills and no malaise Respiratory: no cough and no dyspnea Cardiovascular: no chest pain, no palpitations and no edema Gastrointestinal: no abdominal pain, no constipation and no diarrhea/loose stools Genitourinary: no dysuria and no hematuria Physical Exam Constitutional: WD/WN, vitals as above Eyes: PERRL, conjunctivae normal, anicteric sclerae ENMT: external ear and nose normal, oropharynx normal Neck: normal visual inspection Respiratory: normal respiratory effort, lungs clear to auscultation Cardiovascular: Rate/Rhythm: regular rhythm and + tachycardic Heart Sounds: normal S1 and normal S2; no murmur Extremities: no edema Gastrointestinal (Abdomen): normal bowel sounds, soft, nontender, no hepatosplenomegaly Musculoskeletal: no cyanosis or clubbing, extremities motor strength 5/5 Skin: no rashes, warm and dry Neurologic: AAOx3, normal speech. Bilateral UE, LE, and face without sensory or motor deficits. Psychiatric: A+Ox3, euthymic affect Results & Data Results & Data ([facility]) Vital Signs (Past 12 Hours) Vital Signs Temp Pulse Pulse Resp BP BP Pulse Ox 08/24/21 18:00 36.9 C 98 H 18 123/86 99 08/24/21 16:29 36.5 C 127 H 20 96/65 L 97 Code Status & VTE Plan VTE Prophylaxis Plan VTE Prophylaxis will be ordered: Yes Supervising Physician Co-Signing Physician Notes Attending addendum: I have physically seen this patient, have supervised the medical residents activities, and agree with the H&P unless as otherwise noted. Assessment and Plan: Guayanilla's disease/adrenal insufficiency- Sodium 123, potassium 6.7 on admission Hydrocortisone 100 mg IV every 8 hours Continue fludrocortisone baseline dose of 0.05 mg daily Given Veltassa and bicarbonate by ED Calcium gluconate 1000 mg IV x1 Repeat laboratories serially as noted NSS at 125 mils per hour Serum and urine osmolality pending along with urine sodium Remaining orders and notations as noted Resident Activity Tracking Resident Involvement: Resident Care Provided Care Provided: Adult [facility] Medicine
[2021-08-25] MEDS ORDERED: CALCIUM GLUCONATE 10% 1,000 MG in SODIUM CHLORIDE 0.9% 50 ML IV ONE (00:11)
[2021-08-25] MEDS ORDERED: HYDROCORTISONE SOD SUCCINATE 100 MG/2 ML VIAL IV SCH ×3 (04:00)
[2021-08-25] MEDS ORDERED: CALCIUM GLUCONATE 1000 MG/60 ML NSS IV ONE (04:29)
[2021-08-25] MEDS ORDERED: HYDROCORTISONE SOD SUCCINATE 100 MG/2 ML VIAL ONE (04:30)
[2021-08-25] MEDS: HYDROCORTISONE SOD 100 MG in SYRINGE 0 ML IV SCH ×2 (05:16→14:39)
[2021-08-25] MEDS: LEVOTHYROXINE SODIUM 100 MCG TABLET PO SCH (06:20)
[2021-08-25] MEDS ORDERED: ACETAMINOPHEN 325 MG TAB PO PRN (07:25)
[2021-08-25] MEDS ORDERED: ONDANSETRON INJ 2 MG/ML 2 ML VIAL IV PRN (07:25)
--- NOTE | 2021-08-25 07:48 | Hospitalist Progress Note ---
Date of Service August 25, 2021 Assessment & Plan (1) Adrenal insufficiency: Plan: - Hx of Reji's disease, usually on hydrocortisone and fludrocortisone. Recent adrenal insufficiency possibly 2/2 GI virus vs recent lowering of hydrocortisone dose. - Patient given 100mg hydrocortisone in ED, received 100mg x2 since admission. - Patient feels increase in heart rate upon standing up indicating some dehydration still at play. Continued rehydration with lactated ringers at 150 cc/hr. - Switching patient to PO hydrocortisone at the dose she usually took during the summer and seeing how she fairs on that + hydration. Dosing in the summer may have been the amount she really needed, so we will try a dose close to that. Hydrocortisone regimen will be 5mg PO tonight, 25mg PO in the morning and 10mg PO at lunch. Will reassess patient tomorrow. Of note, patient said her anniversary is tomorrow. (2) Hyperkalemia: Plan: - Potassium upon entering 7.2 hemolyzed, 6.7 PoC and given Patiromer, bicarb, and calcium gluconate. No EKG changes or arrhythmias were noted on cardiac monitoring at the time of her admission. Potassium on BMP this morning 4.2, within normal limits. - Most likely 2/2 adrenal insufficency. (3) Hyponatremia: Plan: - Sodium upon entering ED 121, given 3L lactated ringers. Repeat sodium on BMP t his morning 131. On a regular diet, tolerating well. - Hyponatremia most likely 2/2 adrenal insufficiency salt wasting. (4) MELISSA (acute kidney injury): Plan: - Creatinine upon entering ED 1.33 -> 1.24 two hours later, this morning at 1.43 on BMP. - More likely prerenal MELISSA 2/2 dehydration/hypovolemic ischemia to kidneys. - Ordered patient LR 150cc/hr for rehydration. Will recheck BMP in morning. (5) Hypothyroidism: Plan: - TSH 08/24 1.55, within normal limits. - Continue 100mcg levothyroxine PO daily. (6) Premature ovarian failure: Plan: Sees Katy ALEXANDER as outpatient. No intervention needed at this time. Admission and Anticipated Discharge Date Admission Date: August 24, 2021 Supervising Physician Co-Signing Physician Notes I personally examined the patient and verified all robles points of history and exam, discussed case, and agree with decision making with Dr Reyes. Generally feeling better, but notes that whenever she stands up her heart starts pounding. Eating and drinking okay. No other new symptoms. Vitals noted, in general she is awake and alert pleasant no distress. HEENT normocephalic atraumatic mucous membranes moist. Breathing unlabored no accessory muscle use good effort. Skin shows no rashes no pallor or icterus. Neuro without focal deficits. Adrenal crisis/symptomatic relative adrenal insufficiencycomplicated by hyponatremia, hyperkalemia, AKIdoing better now, definitely still seems volume down if not a little bit adrenally down (doubt it given that she has been getting stress dose IV hydrocortisone) will continue IV fluids and check labs again in the morning. As it relates to the hydrocortisone, she noted that she was on a higher dose through the summer feeling like working harder in the heat/being dehydrated may have required higher dosing, but I wonder if she was requiring that higher dosing alongand that it was a dose reduction that led to her current crash. Less likely would be that she picked up a viral gastroenteritis causing excess metabolic/physiologic stress that she would have needed to stress dose for, but it seems more plausible that the GI symptoms were due to the adrenal insufficiency itself. In that respect, we will resume her hydrocortisone at about the dose that she was taking through the summer, follow her on p.o. hydrocortisone, and then if she is doing okay, and tachycardia has improved, and creatinine continues to improve, hopefully home tomorrow. otherwise as above Subjective This is a 26 year old female with past medical history of Reji's disease, hypothyroidism, and premature ovarian failure who is admitted for adrenal insufficiency. Patient with previous diagnosis of Reji's disease from a few months back. Had symptoms of nausea and vomiting for the 3-4 days followed by ge tting lightheaded when moving from sitting to standing position. She was also unable to tolerate PO intake except for small sips of water with her medication. She came to the ED and was found to have potassium 7.2 (hemolyzed), PoC potassium 6.7, Na 121, Creatinine 1.33, HR 110's, BP 96/65. She was also given 3L lactated ringer with repeat Na 123, as well as IV hydrocortisone and fludrocortisone. When I saw this patinet with Dr. Hall the patient said she still experiences increased heart rate upon standing up. 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 She had recently lowered the dosage back down before her s ymptoms that brought her to the ED started. Review of Systems Constitutional: no fever, no chills and no malaise Respiratory: no cough and no dyspnea Cardiovascular: no chest pain, no palpitations and no edema Gastrointestinal: no abdominal pain, no constipation and no diarrhea/loose stools Genitourinary: no dysuria and no hematuria Results & Data Results & Data ([facility]) Vital Signs (Past 12 Hours) Vital Signs Temp Pulse Pulse Resp BP BP Pulse Ox 08/25/21 04:58 36.8 C 93 H 16 126/77 96 08/25/21 04:00 105 H 14 140/73 96 08/25/21 03:30 110 H 13 130/71 96 08/25/21 03:00 111 H 16 101/66 96 08/25/21 02:30 114 H 19 100/57 L 98 08/25/21 02:00 104 H 15 126/74 95 08/25/21 01:30 107 H 13 123/74 97 08/25/21 01:00 109 H 12 110/76 96 08/25/21 00:30 105 H 10 L 115/73 98 08/25/21 00:00 110 H 11 L 133/74 97 08/24/21 23:30 106 H 11 L 118/78 100 08/24/21 23:00 100 H 15 109/89 97 08/24/21 22:30 104 H 13 133/79 99 08/24/21 22:15 96 H 12 98 08/24/21 22:02 103 H 17 98 08/24/21 21:30 96 H 17 135/81 99 08/24/21 21:10 100 H 11 L 143/92 H 98 Resident Activity Tracking Resident Involvement: Resident Care Provided Care Provided: [facility] Medicine
[2021-08-25] MEDS: FLUDROCORTISONE ACETATE 0.1 MG TAB PO SCH (08:50)
[2021-08-25] MEDS ORDERED: LEVOTHYROXINE SODIUM 100 MCG TABLET PO SCH (09:00)
[2021-08-25 09:06] LABS: BUN Creatinine Ratio 14.7 (10-20); Calcium 9.8 mg/dl (8.5-10.1); Est GFR (African American) 58.8 ml/min; Est GFR (Non-African American) 50.8 ml/min; Potassium 4.2 mmol/L (3.5-5.1)
[2021-08-25] MEDS: LACTATED RINGER'S 1,000 ML IV SCH ×2 (14:40→21:23)
--- NOTE | 2021-08-25 16:15 | Billing Data ---
Date of Service August 25, 2021 Coding Level of Care Code 41774 Subseq Hosp Care Lvl 3
[2021-08-25] MEDS ORDERED: HYDROCORTISONE 10 MG TAB PO SCH (19:00)
--- NOTE | 2021-08-25 19:40 | Billing Data ---
Date of Service August 25, 2021 Coding Level of Care Code 56478 Initial Inpt Care Lvl 3
--- NOTE | 2021-08-25 19:45 | Electrocardiogram Report ---
Test Reason : Blood Pressure : / mmHG Vent. Rate : 106 BPM Atrial Rate : 106 BPM P-R Int : 148 ms QRS Dur : 082 ms QT Int : 334 ms P-R-T Axes : 056 095 052 degrees QTc Int : 443 ms Sinus tachycardia Rightward axis Borderline ECG When compared with ECG of 13-NOV-2020 13:34, No significant change was found Confirmed by Tito Ybarra ([id number]) on 08/25/2021 7:45:19 PM Referred By: REFERRED SELF Confirmed By:Tito Ybarra
[2021-08-26] MEDS: LACTATED RINGER'S 1,000 ML IV SCH ×2 (04:06→11:11)
[2021-08-26] MEDS: LEVOTHYROXINE SODIUM 100 MCG TABLET PO SCH (05:55)
[2021-08-26 07:00] LABS: BUN Creatinine Ratio 18.7 (10-20); Calcium 9.3 mg/dl (8.5-10.1); Creatinine Clr Calc Pharmacy 95.9 ml/min; Est GFR (African American) 94.1 ml/min; Est GFR (Non-African American) 81.2 ml/min; Potassium 3.8 mmol/L (3.5-5.1)
[2021-08-26] MEDS: FLUDROCORTISONE ACETATE 0.1 MG TAB PO SCH (07:55)
[2021-08-26 08:20] LABS: Hematocrit (blood only) 34.9 % (37-47); Hemoglobin 12.3 g/dL (12.0-16.0); Mean Corpuscular Hemoglobin 29.4 pg (25-34); Mean Corpuscular Hgb Conc 35.2 g/dL (32-36); Mean Corpuscular Volume 83.3 fL (80-100); Mean Platelet Volume 10.8 fL (7.4-10.4); Platelet Count 311 K/uL (130-400); RDW Coefficient of Variation 12.7 % (11.5-14.5); RDW Standard Deviation 38.5 fL (36.4-46.3); Red Blood Count 4.19 M/uL (4.2-5.4); White Blood Count 10.48 K/uL (4.8-10.8)
[2021-08-26 08:30] LABS: Basophils # (auto) 0.03 K/uL (0-0.2); Basophils % (auto) 0.3 %; Eosinophils # (auto) 0.14 K/uL (0-0.5); Eosinophils % (auto) 1.3 %; Immature Granulocytes # (auto) 0.01 K/uL (0.00-0.02); Immature Granulocytes % (auto) 0.1 %; Lymphocytes # (auto) 5.26 K/uL (1.2-3.4); Lymphocytes % (auto) 50.2 %; Monocytes % (auto) 7.6 %; Neutrophils # (auto) 4.24 K/uL (1.4-6.5); Neutrophils % (auto) 40.5 %
[2021-08-26] MEDS ORDERED: HYDROCORTISONE 10 MG TAB PO SCH ×2 (09:00→11:30)
--- NOTE | 2021-08-26 13:28 | Discharge Summary ---
Date of Service August 26, 2021 Admission HPI Per Admitting Provider 26-year-old female past medical history significant for Blount's disease follows with endocrinology, hypothyroidism, premature ovarian failure presented to the ER for 3 to 4 days of GI illness, predominantly nausea and vomiting. Today started to develop lightheaded sensation with attempts at sitting up or standing in the setting of being unable to tolerate p.o. intake save for small sips of water for medications. In the ER noted to be tachycardic to the 110s and mildly hypotensive to 90s/50s. Lab work in the ER notable for potassium of 7.2 noted to be hemolyzed. Mibck-le-dvit potassium x2 of 6.7. Sodium 121 (baseline 135 in prior labwork), creatinine 1.24, TSH 1.550 stable from baseline. Patient received Patiromer 8.4 grams p.o., and also received a total of 100 mg Solu-Cortef, 3 L lactated Ringer's. Repeat Na 123 two hours after prior check. On my interview patient reports feeling well without nausea or vomiting, no shortness of breath, no lightheadedness sitting up in bed. Admission Exam Per Admitting Provider Constitutional: WD/WN, vitals as above Eyes: PERRL, conjunctivae normal, anicteric sclerae ENMT: external ear and nose normal, oropharynx normal Neck: normal visual inspection Respiratory: normal respiratory effort, lungs clear to auscultation Cardiovascular: Rate/Rhythm: regular rhythm and + tachycardic Heart Sounds: normal S1 and normal S2; no murmur Extremities: no edema Gastrointestinal (Abdomen): normal bowel sounds, soft, nontender, no hepatosplenomegaly Musculoskeletal: no cyanosis or clubbing, extremities motor strength 5/5 Skin: no rashes, warm and dry Neurologic: AAOx3, normal speech. Bilateral UE, LE, and face without sensory or motor deficits. Psychiatric: A+Ox3, euthymic affect Principal Diagnosis Adrenal Insufficiency Discharge Exam Constitutional: WD/WN, vitals as above Eyes: PERRL, conjunctivae normal, anicteric sclerae ENMT: external ear and nose normal, oropharynx normal Neck: normal visual inspection Respiratory: normal respiratory effort, lungs clear to auscultation Cardiovascular: Rate/Rhythm: regular rate and rhythm Heart Sounds: normal S1 and normal S2; no murmur Extremities: no edema Gastrointestinal (Abdomen): normal bowel sounds, soft, nontender, no hepatosplenomegaly Musculoskeletal: no cyanosis or clubbing, extremities motor strength 5/5 Skin: no rashes, warm and dry Neurologic: normal speech. Bilateral UE, LE, and face without sensory or motor deficits. Psychiatric: A+Ox3, euthymic affect Discharge Data Allergies Allergy/AdvReac Type Severity Reaction Status Date / Time No Known Allergies Allergy Verified 08/24/21 17:21 Consultations 08/24/21 23:46 ED Decision to Admit Stat Hospital Course (1) Adrenal insufficiency: - Hx of Blount's disease, usually on hydrocortisone and fludrocortisone. Recent adrenal insufficiency possibly 2/2 GI virus vs recent lowering of hydrocortisone dose. - Patient given 100mg hydrocortisone in ED, received 100mg x2 since admission. - Patient felt increased heart rate when standing up with some lightheadedness, continued to rehydration with LRs, today felt no longer felt lightheaded and no longer "felt" her chest beating fast - Switching patient to PO hydrocortisone at the dose she usually took during the summer and seeing how she fairs on that + hydration --> given hydrocortisone 35mg total today --> we will discharge her with a 40mg daily regimen (20mg BID), she can take 5mg when she gets home today to complete her daily dosage -also continue fludrocortisone 0.05mg PO daily -f/u with endo for dosing readjustment (2) Hyperkalemia: - Potassium upon entering 7.2 hemolyzed, 6.7 PoC and given Patiromer, bicarb, and calcium gluconate. No EKG changes or arrhythmias were noted on cardiac monitoring at the time of her admission. Potassium on BMP this morning 3.8, within normal limits. - Most likely 2/2 adrenal insufficency. (3) Hyponatremia: - Sodium upon entering ED 121, given 3L lactated ringers. Repeat sodium on BMP this morning 135. On a regular diet, tolerating well. - Hyponatremia most likely 2/2 adrenal insufficiency salt wasting. (4) MELISSA (acute kidney injury): - Creatinine upon entering ED 1.33 -> 1.24 --> 0.97; resolved - More likely prerenal MELISSA 2/2 dehydration/hypovolemic ischemia to kidneys. (5) Hypothyroidism: - TSH 08/24 1.55, within normal limits. - Continue 100mcg levothyroxine PO daily. (6) Premature ovarian failure: Sees Katy ALEXANDER as outpatient. No intervention performed during stay. Total Time Total Time Spent Total Time Spent (In Minutes): 30 Discharge Plan Discharge Items Patient Disposition: Home - Self-Care Reason For Visit: ADRENAL INSUFFICIENCY Discharge Diagnosis: Adrenal Insufficiency Activity: Per Instructions section Non-emergency contact: Primary Care Provider and Specialist Call non-emergency contact if: you have any medication questions and your symptoms worsen Follow-up/Referrals: Melo Cardozo MD [Physician] - (Hospitalization secondary to adrenal insufficiency. Readjust medications. ) Leandra Francisco MD [Primary Care Provider] - 08/30/21 11:30 am Diet: Regular Addtl Attending Provider Instructions: You were admitted to the hospital for adrenal insufficiency most likely secondary to reduced dosing of home hydrocortisone. On arrival you had higher than normal potassium and lower than normal sodium levels which makes sense for your condition. Over your stay, we were able to keep you hydrated, correct your electrolyte abnormalities, and keep you clinically stable by giving you high doses of hydrocortisone to where you were no longer feeling gastrointestinal symptoms or lightheadedness. Similar to what you were taking during the summer, we advise you take hydrocortisone 20mg 2x/day (40mg total per day) beginning tomorrow. If you ever feel any symptoms of not feeling well on this dosage, double the dose by taking an additional 40mg during those events. Tonight, you should take hydrocortisone 5mg since you have already been given 35mg in the hospital this morning. You should follow up with your escrow officer to assist with dosing recommendations in order to manage your adrenal insufficiency. If you cannot get an appointment with your escrow officer, follow up with your primary care provider. It also appears you have alot of medication at home with refills so we will let your escrow officer and primary care provider refill those as needed. Pending Studies at Discharge: No Stand-Alone Forms: My [facility] Medications and DC Order Prescriptions: Continued fludrocortisone 0.1 mg tablet 0.05 mg PO DAILY Qty: 90 RF: 3 levothyroxine 100 mcg tablet 100 mcg PO DAILY Qty: 90 RF: 2 hydrocortisone 5 mg tablet See Rx Instructions PO .COMPLEX Qty: 270 RF: 5 multivitamin Tablet 1 tab PO DAILY RF: 0 Discharge Orders: Discharge Order (Routine); Ordered 08/26/21 Ordered By: Luís Adames Admission Data Admit Date/Time: 08/24/21 23:40 Attending Provider: David العراقي Admit Provider: Saniya Sahu Primary Care Provider: Leandra Francisco Other Providers: Juma Kolb Other Interventions: Discharge Summary Assessment (RN) Last Done: 08/26/21 12:54 Supervising Physician Co-Signing Physician Notes Attending attestation Pt seen and examined in concert with Dr. Adames. In agreement with the documented findings as noted in the resident documentation with any exceptions or additions as noted here. Resting in bed tolerating POI well. Resolution of positional symptoms, nausea and decreased POI. On examination, S1/S2 nl RRR no MCG. CTAB. Abd NT/ND BS+ve Adrenal insufficiency - will return to 20mg BID hydrocortisone dosing atop fludricortisone 0.05mg with close monitoring and follow up with PCP and endocrinology as well as adjustment instructions should symptoms recur. Else see resident documentation as noted. Resident Activity Tracking Resident Involvement: Resident Care Provided Care Provided: Adult Hospital Medicine
--- NOTE | 2021-08-26 14:33 | Electrocardiogram Report ---
Test Reason : Blood Pressure : / mmHG Vent. Rate : 066 BPM Atrial Rate : 066 BPM P-R Int : 186 ms QRS Dur : 100 ms QT Int : 422 ms P-R-T Axes : 063 062 040 degrees QTc Int : 442 ms Normal sinus rhythm with sinus arrhythmia Normal ECG When compared with ECG of 24-AUG-2021 16:50, Vent. rate has decreased BY 40 BPM Questionable change in QRS duration Confirmed by Javier Alvarez ([id number]) on 08/26/2021 2:32:54 PM Referred By: REFERRED SELF Confirmed By:Abhinav Alvarez
== END 2021-08-26 14:48 | disposition home or self-care (01) | DRG 644 ==
LOC: ED 16:23 → SUATTDRO 23:40 → 2S 23:40